=== PATIENT | female | born 1940 | race Caucasian/White ===

== ENCOUNTER 2020-11-30 10:00 | Outpatient (CLI) | payer MEDICARE, BC ==
--- NOTE | 2020-11-30 11:13 | CT Report ---
PROCEDURE: HEAD WO INDICATIONS: COGNITIVE IMPAIREMENT TECHNIQUE: Noncontrast 4.5 mm thick angled axial sections acquired from the foramen magnum to the vertex. For r adiation dose reduction, the following was used: automated exposure control, adjustment of mA and/or kV according to patient size. COMPARISON: None. FINDINGS: Image quality: Excellent. CSF spaces: Basal cisterns are patent. No extra-axial fluid collections. Ventricles are normal in size and shape. Brain: No midline shift. No intracranial masses or hemorrhage. There is mild cerebral volume loss. Mild periventricular white matter chronic small vessel ischemic disease are present. Skull and face: Calvarium and visualized facial bones are intact, without suspicious lesions. Sinuses: Visualized sinuses and mastoids are clear. IMPRESSION: 1. No acute intracranial abnormality. 2. Mild cerebral volume loss and periventricular white matter microvascular ischemic changes. Reviewed by: Ollie Jaramillo MD on 11/30/2020 11:12 AM [facility] Approved by: Ollie Jaramillo MD on 11/30/2020 11:12 AM [facility] Station ID: [id number]
== END 2020-11-30 10:01 | disposition home or self-care (01) ==
LOC: DI 10:00
PROVIDERS: ATTEND Nurse Practitioner Family
DX: R41.89 Other symptoms and signs involving cognitive functions and awareness (principal)

== ENCOUNTER 2021-01-24 11:40 | Outpatient (CLI) | payer MEDICARE, BC ==
--- NOTE | 2021-01-24 16:14 | CONSULTATION NOTE ---
Palliative Care Consultation - Referral Referring Provider: AISHA Tripp Time of Visit: [id number] Referral setting: Home Referral Reason: Alzheimer's Dementia/Advanced Care Planning - Information Sources Records reviewed: Previous records reviewed History/Review of Systems obtained from: Family (Fuad HANDLEY), Caregiver (Eleni) Exam limitations: Clinical condition (Advanced Dementia) - History of Present Illness Brief History of Present Illness: This is a 80-year-old female who presents today for initial palliative care consultation due to advancement of Alzheimer's dementia and advance care planning with her significant other/CASS, Fuad present and private caregiver, Eleni within her home setting. The patient's bowels is the historian has the patient has advanced dementia and is not a good historian. The patient spouse reports that approximately 4 years ago the patient had a sudden event in [place] that appeared to be a CVA where she had significant and memory loss, behavioral issues such as screaming and the patient was "not quite herself." She had an 8-day stay in the hospital [facility] where there was no evidence of a CVA and eventually the patient came back to "normal." But the patient spouse reports that after that initial incident she continued to have slow decline in her ability to do things such as her organization became less and less as well as her ability to figure how to do things in the house. Then approximately 6 months ago the patient was having decreased ability to recognize how to do things such as using the bathroom, remembering her significant other, and demonstrating increased decline. The patient's spouse feels like there have been a series of events of potential CVAs but all her multiples imagings a courier the past several years have been negative for a CVA. The patient has been seen and evaluated by neurology, Dr. Dakota Rabago at [facility] with neuro consult in 2019 with a diagnosis of Alzheimer's dementia. It was advised to utilize sertraline, Aricept, Seroquel and Zyprexa as needed. They have been following up via phone and have not followed back up in person. The patient has increased fidgeting and hyper energy in the evenings around typical time for sundowning behaviors and was recently initiated on Depakote 250 mg which the is administering half a tablet in the late morning early afternoon which has been done for the last month unclear if this is been providing a benefit. She has had persistent dizziness after syncopal episodes that have occurred intermittently that will last for a day or so and then resolve. She has had this evaluated with no reported findings per the . Her last episode was approximately 2 months ago. The patient has had a decreased appetite and will nibble at foods. She is unable to sit at the dining room table to have a full on meal and does better with finger foods. No reports of coughing during mealtimes. Patient has good days and bad days. Typically the mornings are better for the patient in approximately 2:58 in the afternoon she has more energy and has increased fidgeting behaviors. She does have urinary incontinence with no evidence of increased urinary frequency or dysuria. She is mainly continent of bowel. No evidence of constipation and typically has a bowel movement once per day. The patient is seen in the common area with a cap on her head and her hair not brushed. She is alert and not engaged and less directly addressed. No evidence of acute distress. Neurology: Dr. 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 Support System: The patient grew up in [place]. She has no children's. She and her significant other, Fuad have been together 25 to 30 years. 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 The patient also served with the [employer]. She is written multiple bulks. She has climbed [employer]. She and her spouse have a second home in [place] where they spend much of the last year due to Covid for increased isolation and protection. They also built the home that they live on [address]. The patient has a private caregiver, Eleni who is been with the patient for approximately 2 months through [facility] based out of [place]. Eleni is a former respiratory therapist. Otherwise, the patient's spouse is her primary caregiver and Eleni is present 5 to 6 hours/day 6 days/week. Family History - Family History Family History: Mother: , Father: Family History Comment/Other: The patient's sister remains alive in [place] but they are estranged. Both of the patient's parents had dementia and are both . The patient took care of her parents for some time until they transitioned to caregiving support at home and were able to at home. Medications/Allergies - Medications Home Medications: Ambulatory Orders Medication Instructions Recorded Confirmed Divalproex ER [Depakote ER] 125 mg PO DAILY 01/24/21 01/24/21 Donepezil HCl [Aricept] 20 mg PO QPM 01/24/21 01/24/21 Levothyroxine Sodium [Synthroid] 75 mcg PO DAILY 01/24/21 01/24/21 Melatonin 3 mg PO QPM 01/24/21 01/24/21 OLANZapine [Zyprexa] 2.5 mg PO DAILY PRN 01/24/21 01/24/21 QUEtiapine [SEROquel] 25 mg PO QPM 01/24/21 01/24/21 Sertraline [Zoloft] 25 mg PO DAILY 01/24/21 01/24/21 - Allergies Allergies/Adverse Reactions: Allergies Allergy/AdvReac Type Severity Reaction Status Date / Time No Known Allergies Allergy Unknown Verified 01/24/21 17:01 Review of Systems - Constitutional Constitutional: denies: Fever - Eyes Eyes: reports: Vision loss - Ears, Nose & Throat Ears, Nose & Throat: reports: Hearing loss. denies: Hearing aids - Cardiovascular Cardiovascular: denies: Chest pain, Edema - Respiratory Respiratory: denies: Cough - Gastrointestinal Gastrointestinal: reports: Poor appetite (see HPI). denies: Constipation, Diarrhea, Vomiting - Genitourinary Genitourinary: reports: Incontinence. denies: Dysuria - Musculoskeletal Musculoskeletal: denies: Joint pain, Assistive devices - Integumentary Integumentary: denies: Rash - Neurological Neurological: reports: Dizziness (see HPI for additional details), Memory problems - Psychiatric Psychiatric: reports: Depression - Endocrine Endocrine: reports: Hypothyroidism (spouse sometimes forgets to administer synthroid in the morning) - All Other Systems All Other Systems: reports: Reviewed and negative (patient is a poor historian due to dementia and ROS supplemented by caregiver and SO) Physical Exam - Vital Signs Pulse Rate: 72 O2 Saturation: 98 (on RA) Blood Pressure: 128/66 (left arm standing) - Physical Exam General Appearance: positive: No acute distress, Alert Eyes Bilateral: positive: Normal inspection ENT: positive: No signs of dehydration, Other (+[place]) Neck: positive: Trachea midline Cardiovascular: positive: Regular rate & rhythm, No murmur Respiratory: positive: No respiratory distress, Breath sounds nml. negative: Rales Abdomen: positive: Non-tender, Soft, Nml bowel sounds Skin: positive: Dryness (slight to BLE) Extremities: positive: No pedal edema Neurologic/Psychiatric: positive: Disoriented to place, Disoriented to time, Other (Pleasantly confused and could not follow simple comands. Does not ambulate with an assistive device.) Comments/Other: 132/68, left arm standing Palliative Care - POLST Patient has POLST: No Pain: No pain Tiredness/Fatigue: None Drowsiness/Sedation: None Nausea: None Anorexia: Moderate (4-6) Dyspnea: Mild (1-3) Anxiety: Severe (7-10) Sleep: Sleeps well (sleeps in a seperate hut on the facility next to her SO's hut where she is visualized. There is also a camera in the hut and a portable toliet.) Constipation: No Performance Status: Patient is ambulatory without assistive devices with no history of falls. She has not wandered off the property. She requires assistance with IADLs. She has an aversion to bathing. She has urinary incontinence and is mostly continent of bowel. Able to self feed but finds finger foods easier. - Palliative Care Discussion: The patient has had a significant decline in her cognitive status over the last 4 years with increased fidgeting and perseverating behaviors in the early evening hours indicative of sundowning behavior. The patient's significant other has been trying to do the best that he can in the present circumstances and has found great relief with the support of private caregiver, Eleni coming 6 days/week. He feels in the evening is the time that he is finally able to rest. The patient's spouse does feel given the acuity of her memory loss and events surrounding it is more indicative of vascular dementia however, per documenta tion from PCP per the neurologist she has underlying Alzheimer's dementia and has a family history of dementia. The patient spouse is looking for additional guidance and introduced the role of palliative care today as well as advanced care planning. Introduced the POLST and provided a copy for the patient's spouse to review and we readdressed at subsequent visits as well as billing report and teasing out goals of care. Impression and Recommendations - Palliative Care Impression: This is a 80-year-old female with a history of Alzheimer's dementia that has demonstrated progressive cognitive decline with underlying sundowning behaviors indicative of fidgeting that are presently overall controlled with the present regimen. The patient's spouse demonstrates some caregiver fatigue that is being assisted with the use of a private caregiver. Introduced advanced care planning to all parties. Palliative care will continue to provide support, care coordination, symptom management and anticipatory guidance. Recommendations/Counseling Done: 1. Decreased oral intake. No reported weight loss. As the patient has deficits with utilizing utensils would recommend continued use of finger foods for the patient to snack throughout the day to maintain calories. 2. Alzheimer's dementia. Has been followed by neurology and will request initial consultation and last office visit from Dr. Dakota Rabago. Patient is presently on Aricept 20 mg daily. For her increased fidgeting and behavioral disturbances indicative of sundowning in the evenings she is on routine quetiapine, Depakote, and sertraline. She has as needed Zyprexa 2.5 mg to be administered daily if needed. Fall precautions. Given the patient's advanced age and chronic comorbidities a gradual decline is expected. 3. Syncopal episodes. And this is a reported history with none recently. Multiple images have been performed without evidence of CVA. Last head CT performed 11/30/2020 "demonstrated no acute intracranial abnormality. Mild cerebral volume loss and periventricular white matter microvascular ischemic changes." No evidence of hypotension today. Encourage routine oral hydration throughout the day if this was a contributing factor. 4. Hypothyroidism. Discussed importance of routine administration of synthroid w ith SO and continued administration. 5. Advanced care planning. Patient has a healthcare power of real estate attorney documentation in place and requested the patient significant other to have available at next visit for copies to be made. Introduced POLST today with the purpose and provided blank copy to review at subsequent visits. As the patient and her significant other are without local family support will continue to need to tease out any additional relief for caregiving burden. Presently supported by private caregiving service that comes 6 days/week. We will continue to tease out goals of care moving forward. Total time spent 80 minutes with greater than 50% of this spent in counseling and coordination of care with patient, SO/DPOA Fuad and private caregiver Eleni; role of palliative care; progression of dementia;examination of patient; review of symptom management and anticipatory guidance. Disclaimer: The chart note was formulated using voice recognition technology and unfortunately sound alike errors may occur.
== END 2021-01-24 11:41 | disposition home or self-care (01) ==
LOC: PC 11:40
PROVIDERS: ATTEND Nurse Practitioner Family
DX: Z51.5 Encounter for palliative care (principal); R63.8 Other symptoms and signs concerning food and fluid intake; G30.9 Alzheimer's disease, unspecified; F02.80 Dementia in other diseases classified elsewhere, unspecified severity, without behavioral disturbance, psychotic disturbance, mood disturbance, and anxiety; E03.9 Hypothyroidism, unspecified
CPT/HCPCS: 99345

== ENCOUNTER 2021-02-08 11:30 | Outpatient (CLI) | payer MEDICARE, BC ==
--- NOTE | 2021-02-08 16:47 | CONSULTATION NOTE ---
Palliative Care Follow Up - Referral Referring Provider: AISHA Tripp Time of Visit: [id number] Referral setting: Home Referral Reason: Alzheimer's Dementia/Advanced Care Planning/Left shoulder injury - Information Sources Records reviewed: Previous records reviewed History/Review of Systems obtained from: Patient, Family (spouse, Fuad), Caregiver (Eleni) Exam limitations: Clinical condition (Advanced Dementia) - History of Present Illness Update Brief HPI Update: This is a 80-year-old female who is seen in follow-up today due to Alzheimer's dementia, left shoulder injury, and advanced care planning with her spouse/DPMARIA GUADALUPE Merida present as well as private caregiver, Eleni within her home setting. The patient's cognitive decline appeared to progress rapidly in 2017 while they were in vacation in [place]. The patient was in the hospital where she was disoriented and confused. She gradually improved and returned to her baseline without any intervention. Work-up included MRI, MRA, echo, EEG and CSF studies were essentially benign. The EEG at that time did show background slowing. She has been seen and evaluated by neurology, Dr. Dakota Rabago at [facility]. Followed up by phone but not for an in person visit for some time. The patient has been on Depakote per the spouse's report for approximately 2 months. During that time patient spouse reports that the patient has had intermittent difficulties with ambulating where she will lean towards one side. This most recent event occurred ~where the patient's spouse drove her to the emergency department to be evaluated however, by the time they presented to the emergency department she was back to her baseline and no longer leaning and therefore was not seen and evaluated. The patient's spouse questions if the Depakote may be contributing to her imbalance. As the spouse his concerned the depakote may be contributing to her imbalance he has reduced the administration and yesterday she did not receive a dose. There have been no falls that have been observed. However, on Thursday, the patient's spouse and caregiver noted bruising and swelling to the patient's left clavicle and shoulder. Any events that could have occurred would have happened overnight when the patient was in her sleeping quarters. She does not often allow for her close to be routinely changed and therefore, this was not noticed. There has been no evidence of increased agitation however, she does display signs and symptoms of discomfort when raising her left arm up. They have not provided any oral [id number] medication for pain. The patient does have a history of behavioral disturbances with agitation and anxiety. However, this appears to be intermittent and will not last very long as the symptoms leeann for the patient is able to be redirected. Spouse reports that he has not needed to utilize the as needed Zyprexa in several weeks. The patient is having a decreased oral intake at dinnertime. Her caregiver at home however also notes that the patient is sleeping longer during the day. Past Medical History: Has a past medical history of Alzheimer's dementia, Hypothyroidism, depression, cataract extraction, LASIK OU, macular drusen OS. Social History - Living Situation Living arrangement: At home Living Situation: With spouse/s.o. Support System: Patient grew up in [place]. She has no children. She and her Fuad have been together for 25 to 30 years. 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 She also served with the [employer] of [employer] [facility]. She is written multiple books. She even has climbed [employer]. The patient and her spouse felt the home that they were residing in on [address]. They have a secondary home and property in [place]. The patient has a private caregiver, Eleni who has been with the patient for approximately 2 months through [facility] based out of [place]. Eleni is present 5 to 6 hours/day 6 days/week and otherwise the patient's spouse is her sole and primary caregiver. Today, a picture of the patient's climbing [employer] was shared. Medications/Allergies - Medications Home Medications: Ambulatory Orders Medication Instructions Recorded Confirmed Divalproex ER [Depakote ER] 125 mg PO DAILY 01/24/21 01/24/21 Donepezil HCl [Aricept] 20 mg PO QPM 01/24/21 01/24/21 Levothyroxine Sodium [Synthroid] 75 mcg PO DAILY 01/24/21 01/24/21 Melatonin 3 mg PO QPM 01/24/21 01/24/21 OLANZapine [Zyprexa] 2.5 mg PO DAILY PRN 01/24/21 01/24/21 QUEtiapine [SEROquel] 25 mg PO QPM 01/24/21 01/24/21 Sertraline [Zoloft] 25 mg PO DAILY 01/24/21 01/24/21 Acetaminophen 500mg/15ml 500 mg PO Q8HR PRN 02/08/21 - Allergies Allergies/Adverse Reactions: Allergies Allergy/AdvReac Type Severity Reaction Status Date / Time No Known Allergies Allergy Unknown Verified 02/08/21 17:39 Review of Systems - Constitutional Constitutional: reports: Fatigue (sleeping later in the mornings). denies: Fever - Eyes Eyes: reports: Vision loss (left eye per spouse and last eye exam 2017 indicates macular drusen to that affected eye) - Ears, Nose & Throat Ears, Nose & Throat: reports: Hearing loss. denies: Hearing aids, Dentures - Cardiovascular Cardiovascular: denies: Edema - Respiratory Respiratory: denies: Cough - Gastrointestinal Gastrointestinal: reports: Poor appetite (decreased consumption of dinner). denies: Constipation, Vomiting - Genitourinary Genitourinary: reports: Incontinence. denies: Dysuria - Musculoskeletal Musculoskeletal: reports: Stiffness (left shoulder), Limited range of motion (left shoulder) - Neurological Neurological: reports: Dizziness (see HPI for additional details), Memory problems - Psychiatric Psychiatric: reports: Depression - Endocrine Endocrine: reports: Hypothyroidism - Hematologic/Lymphatic Hematologic/Lymph: reports: Bruising (left shoulder) - All Other Systems All Other Systems: reports: Reviewed and negative (patient is a poor historian due to dementia and ROS supplemented by caregiver and spouse) Physical Exam - Vital Signs Temperature: 36.5 C Pulse Rate: 61 O2 Saturation: 94 (on RA) Blood Pressure: 147/68 (right wrist) - Physical Exam General Appearance: positive: No acute distress, Alert Eyes Bilateral: positive: PERRL, Other (resolving trace ecchymosis below left eye appx 0.5cm in length and thin) ENT: positive: No signs of dehydration, Other (+[place]) Neck: positive: Trachea midline Cardiovascular: positive: Regular rate & rhythm, No murmur Respiratory: positive: No respiratory distress, Breath sounds nml Abdomen: positive: Non-tender, Soft, Nml bowel sounds Skin: positive: Dryness (slight to BLE), Bruising (along left clavicle to left shoulder down chest wall with edema) Extremities: positive: Other (decreased range of motion left shoulder with abducting above 90 degrees with passive ROM) Neurologic/Psychiatric: positive: Disoriented to place, Disoriented to time, Other (Pleasantly confused and could not follow simple comands. Does not ambulate with an assistive device.) Palliative Care - POLST Patient has POLST: No Pain: Comment (discomfort noted when assessing left shoulder as she did not want the shoulder evaluated or touched) Anorexia: Mild (1-3) - Palliative Care Discussion: The patient continues to have a functional and cognitive decline that has been progressive for for the last 4 years due to her underlying Alzheimer's dementia. She intermittently has episodes of agitation and anxiety that do not require the administration of as needed Zyprexa. The patient spouse has concerns regarding the use of Depakote potentially contributing to the patient's balance. After lengthy discussion weighing benefits versus burdens of medication man agement the patient's spouse wishes to do a trial reduction and discontinuation of Depakote. He is concerned that the patient is being medicated for his and the caregivers benefit versus the patient herself. Supportive listening provided today for the patient's spouse and reviewed evidence of anxiety and agitation in patients with dementia baby indicative of discomfort and therefore would be treating those layers of discomfort. Clearly, the patient is sustained an injury to her left shoulder that was unwitnessed. Given her inability to participate with with articulating the mechanism of injury and following commands it is difficult to assess if there is an underlying fracture. Discussed potential past with the patient's spouse focusing on comfort within the home and monitoring recognizing that the patient may have limited range of motion in the future versus evaluation in an urgent care setting with imaging over the emergency department for decreased ambulation. The patient's spouse is open to having an urgent care evaluation with imaging to rule out a fracture. Introduced POLST again today with the patient's spouse and caregiver. However, the patient spells is reluctant to make any decisions at the present time despite having looked over the POLST and stating that the patient herself wouldn't not wish to be "hooked up to life support." Making these bigger decisions are challenging for the patient's spouse and he wishes to review the patient's living will before making any decisions with the POLST. Impression and Recommendations - Palliative Care Impression: This is a 72-year-old female with a history of Alzheimer's dementia that has demonstrated progressive, cognitive decline with sundowning behaviors that are presently well controlled however, with her recent imbalance issues the patient's spouse wishes to taper off Depakote and monitor behavioral symptoms. She recently sustained an unwitnessed injury to her left shoulder that the patient spouse wishes to have further evaluated with imaging to rule out a fracture. Palliative care will continue to provide support, care coordination, symptom management and anticipatory guidance. Recommendations/Counseling Done: 1. Left shoulder injury with decreased range of motion, ecchymosis and edema. RN witnessed injury. Due to the patient's underlying Alzheimer's dementia unable to fully assess. Weighed benefits versus burdens regarding evaluation versus symptom management within the home with spouse. The patient spouse wishes to have further evaluation with imaging and elects to present with the patient to the [place] walk-in clinic which would be less stimulating than an emergency department setting. Advised to ice the area up to 3 times a day until evaluated to reduce swelling. May utilize acetaminophen 500 mg per 15 mL to administer 500 mg every 8 hours as needed for pain with liquid allowing for ease of administration. F/u with walk in clinic/urgent care. 2. Imbalance. Not noted on today's evaluation or last evaluation. Patient spouse is concerned that Depakote is contributing. Administer Depakote 125 mg 1 capsule every other day x7 days then discontinue. Recommend the patient spouse and caregiver monitor for signs and symptoms of increased agitation. Reviewed the purpose of Depakote as a mood stabilizer for the patient's underlying behaviors. Continue to monitor and provide support to the patient and spouse. 3.Decreased oral intake. No reported weight loss. Continue finger foods as the patient has difficulty utilizing utensils. As the patient is having a decreased oral intake surrounding dinnertime recommended the use of a milkshake with pea protein powder for additional protein supplementation. Continue to monitor. Gradual decreased oral intake is not unexpected given advancement of dementia. 4.Alzheimer's dementia. Followed by neurologist, Dr. Dakota Rabago. Patient is presently on Aricept 20 mg daily. She is also on routine quetiapine as well as sertraline. Will gradually discontinue Depakote and monitor agitation and anxiety behaviors. She has as needed Zyprexa 2.5 mg to be administered daily if needed for acute exacerbation of agitation and anxiety. Fall precautions. Recommended baby gate to be installed at foot of stairs in main quarters to prevent the patient for potentially going up the stairs and falling if unattended. Given the patient's advanced age and chronic comorbidities a gradual decline is expected. 5.Advanced Care Planning. Spouse to obtain the healthcare power of contracts attorney documentation and living will for next visit. We re-introduced POLST today however, the patient's spouse takes time regarding reflecting on decisions before moving forward and requires additional referencing to the patient's living will. Empathetic listening provided to the patient's spouse as he is demonstrating signs of caregiver fatigue. Total time spent 50 minutes with greater than 50% of the spent in counseling and coordination of care with the patient, spouse/CASS Fuad and private caregiver, Eleni; examination of the patient; supportive listening; review of safety measures within the home for the patient; review of symptom management and anticipatory guidance. Disclaimer: The chart note was formulated using voice recognition technology and unfortunately sound alike errors may occur.
== END 2021-02-08 11:31 | disposition home or self-care (01) ==
LOC: PC 11:30
PROVIDERS: ATTEND Nurse Practitioner Family
DX: Z51.5 Encounter for palliative care (principal); G30.9 Alzheimer's disease, unspecified; F02.81 Dementia in other diseases classified elsewhere, unspecified severity, with behavioral disturbance; F32.9 Major depressive disorder, single episode, unspecified; H35.362 Drusen (degenerative) of macula, left eye; H91.90 Unspecified hearing loss, unspecified ear; R32 Unspecified urinary incontinence; S49.92XA Unspecified injury of left shoulder and upper arm, initial encounter; X58.XXXA Exposure to other specified factors, initial encounter; Y92.009 Unspecified place in unspecified non-institutional (private) residence as the place of occurrence of the external cause; E03.9 Hypothyroidism, unspecified; R26.2 Difficulty in walking, not elsewhere classified; Z91.81 History of falling; Z79.899 Other long term (current) drug therapy
CPT/HCPCS: 99349

== ENCOUNTER 2021-03-10 08:30 | Outpatient (CLI) | payer MEDICARE, BC | END 2021-03-10 08:31 | disposition critical access hospital (66) | LOC: EMS 08:30 | DX: R40.4 Transient alteration of awareness (principal) | CPT/HCPCS: A0425; A0429 ==

== ENCOUNTER 2021-03-10 08:52 | Emergency (ER) | payer MEDICARE, BC ==
--- NOTE | 2021-03-10 09:04 | ED Physician Documentation ---
History of Present Illness - Stated complaint Stated Complaint: ALOC - History obtained from History obtained from: EMS - Additonal information Additional information: 81-year-old woman presented with altered mental status upon waking this morning per EMS. called the ambulance because she was behaving at her baseline yesterday and then this morning did not get out of bed. Also with palsy-like movements yesterday per spouse. She has dementia at baseline and per old reports, is had severe progressively deteriorating Alzheimer's over the past several years. She is on Depakote and quetiapine for this. further history limited by patient AMS. She is eye opening intermittently but not on command, stating "leave me alone". no apparent neuro deficits. Collateral information obtained from the when he arrivedpatient has exhibited catatonic behavior for the past 24 hours that is progressively worsened. She has had this happen in the past but never this bad. Also he is concerned that she has been eating and drinking less over the past couple months. Of note, patient takes sertraline in the morning, Depakote 125 around midday prn (but did not take yesterday), and quetiapine/donepezil at bedtime. Neurologist Dr Rabago at [facility]. Review of Systems Unable to obtain: Dementia PD PAST MEDICAL HISTORY - Past Medical History Neuro: Alzhiemer's Endocrine/Autoimmune: HyPOthyroidism : Incontinence HEENT: Chronic vision loss (left eye per spouse), Chronic hearing loss Psych: Depression Musculoskeletal: Osteoporosis - Past Surgical History HEENT: Cataracts - Present Medications Home Medications: Ambulatory Orders Medication Instructions Recorded Confirmed Divalproex ER [Depakote ER] 125 mg PO DAILY 01/24/21 03/10/21 Donepezil HCl [Aricept] 20 mg PO QPM 01/24/21 03/10/21 Levothyroxine Sodium [Synthroid] 75 mcg PO DAILY 01/24/21 03/10/21 Melatonin 3 mg PO QPM 01/24/21 03/10/21 OLANZapine [Zyprexa] 2.5 mg PO DAILY PRN 01/24/21 03/10/21 QUEtiapine [SEROquel] 25 mg PO QPM 01/24/21 03/10/21 Sertraline [Zoloft] 25 mg PO DAILY 01/24/21 03/10/21 Acetaminophen 500mg/15ml 500 mg PO Q8HR PRN 02/08/21 03/10/21 - Allergies Allergies/Adverse Reactions: Allergies Allergy/AdvReac Type Severity Reaction Status Date / Time No Known Allergies Allergy Unknown Verified 03/10/21 09:07 - POLST Patient has POLST: No PD ED PE NORMAL - Vitals Vital signs reviewed: Yes - General General: Other (elderly appearing woman with fine resting tremor) - HEENT HEENT: Atraumatic, PERRL, EOMI, Moist mucous membranes, Pharynx benign - Neck Neck: Supple, no meningeal sign - Cardiac Cardiac: RRR - Respiratory Respiratory: No respiratory distress, Clear bilaterally - Abdomen Abdomen: Non tender, Non distended - Back Back: No spinal TTP - Derm Derm: Normal color, Warm and dry - Extremities Extremities: No deformity - Neuro Neuro: Other (eye opening spontaneously but not on command. moving extremities spontaneously but not on command. speaking in short sentence "Leave me alone!") - Psych Psych: Other (catatonic behavior) Results - Vitals Vitals: Vital Signs - 24 hr 03/10/21 03/10/21 03/10/21 08:59 09:19 09:42 Temperature 36.7 C Heart Rate 80 69 70 Respiratory 18 14 14 Rate Blood Pressure 125/100 H 125/100 H 116/93 H O2 Saturation 96 96 98 03/10/21 03/10/21 03/10/21 10:06 10:30 11:59 Temperature 36.8 C Heart Rate 62 63 66 Respiratory 17 17 18 Rate Blood Pressure 115/103 H 140/62 H 125/100 H O2 Saturation 99 97 99 03/10/21 12:39 Temperature Heart Rate 90 Respiratory 22 Rate Blood Pressure 97/69 O2 Saturation 99 Oxygen O2 Source Room air - EKG (time done) 0901 Rate: Rate (enter#) (66) Rhythm: NSR, Other (PVC, RBBB) - Labs Labs: Laboratory Tests 03/10/21 03/10/21 03/10/21 09:10 09:46 09:46 WBC 9.9 RBC 4.53 Hgb 14.8 Hct 44.7 MCV 98.7 MCH 32.7 H MCHC 33.1 RDW 12.4 Plt Count 124 L MPV 10.7 Neut # (Auto) 8.0 H Lymph # (Auto) 0.5 L [place] # (Auto) 1.1 H Eos # (Auto) 0.2 Baso # (Auto) 0.0 Absolute Nucleated RBC 0.00 Nucleated RBC % 0.0 Manual Slide Review Indicated RBC Morph Micro Appear 1+ ANISOCYTOSIS Sodium 138 Potassium 4.2 Chloride 101 Carbon Dioxide 24 Anion Gap 13.0 BUN 25 H Creatinine 0.8 Estimated GFR (MDRD) 69 L Glucose 125 H Calcium 9.6 Total Bilirubin 1.1 H AST 128 H ALT 51 Alkaline Phosphatase 60 Total Protein 7.4 Albumin 4.0 Globulin 3.4 Albumin/Globulin Ratio 1.2 Lipase 30 TSH Urine Color Urine Clarity Urine pH Ur Specific [place] Urine Protein Urine Glucose (UA) Urine Ketones Urine Occult Blood Urine Nitrite Urine Bilirubin Urine Urobilinogen Ur Leukocyte Esterase Urine RBC Urine WBC Ur Squamous Epith Cells Urine Bacteria Urine Mucus Ur Microscopic Review Urine Culture Comments Nasal Adenovirus (PCR) NOT DETECTED Nasal B. parapertussis DNA (PCR) NOT DETECTED Nasal Coronavir 229E PCR NOT DETECTED Nasal Coronavir HKU1 PCR NOT DETECTED Nasal Coronavir NL63 PCR NOT DETECTED Nasal Coronavir OC43 PCR NOT DETECTED Nasal Enterovir/Rhinovir PCR NOT DETECTED Nasal Influenza B PCR NOT DETECTED Nasal Influenza A PCR NOT DETECTED Nasal Parainfluen 1 PCR NOT DETECTED Nasal Parainfluen 2 PCR NOT DETECTED Nasal Parainfluen 3 PCR NOT DETECTED Nasal Parainfluen 4 PCR NOT DETECTED Nasal RSV (PCR) NOT DETECTED Nasal B.pertussis DNA PCR NOT DETECTED Nasal C.pneumoniae (PCR) NOT DETECTED Serafin Human Metapneumo PCR NOT DETECTED Nasal M.pneumoniae (PCR) NOT DETECTED Nasal SARS-CoV-2 (PCR) NOT DETECTED Salicylates < 6.0 Urine Opiates Screen Ur Oxycodone Screen Urine Methadone Screen Ur Propoxyphene Screen Acetaminophen < 10 L Ur Barbiturates Screen Ur Tricyclics Screen Ur Phencyclidine Scrn Ur Amphetamine Screen U Methamphetamines Scrn U Benzodiazepines Scrn Urine Cocaine Screen U Cannabinoids Screen Ethyl Alcohol < 5.0 03/10/21 03/10/21 09:46 10:03 WBC RBC Hgb Hct MCV MCH MCHC RDW Plt Count MPV Neut # (Auto) Lymph # (Auto) [place] # (Auto) Eos # (Auto) Baso # (Auto) Absolute Nucleated RBC Nucleated RBC % Manual Slide Review RBC Morph Micro Appear Sodium Potassium Chloride Carbon Dioxide Anion Gap BUN Creatinine Estimated GFR (MDRD) Glucose Calcium Total Bilirubin AST ALT Alkaline Phosphatase Total Protein Albumin Globulin Albumin/Globulin Ratio Lipase TSH 7.05 H Urine Color DARK YELLOW Urine Clarity CLEAR Urine pH 6.0 Ur Specific [place] >=1.030 H Urine Protein 30 H Urine Glucose (UA) NEGATIVE Urine Ketones 15 H Urine Occult Blood LARGE H Urine Nitrite NEGATIVE Urine Bilirubin NEGATIVE Urine Urobilinogen 0.2 (NORMAL) Ur Leukocyte Esterase NEGATIVE Urine RBC 0-5 Urine WBC 0-3 Ur Squamous Epith Cells RARE Squamous Urine Bacteria Few Urine Mucus Few Strands Ur Microscopic Review INDICATED Urine Culture Comments NOT INDICATED Nasal Adenovirus (PCR) Nasal B. parapertussis DNA (PCR) Nasal Coronavir 229E PCR Nasal Coronavir HKU1 PCR Nasal Coronavir NL63 PCR Nasal Coronavir OC43 PCR Nasal Enterovir/Rhinovir PCR Nasal Influenza B PCR Nasal Influenza A PCR Nasal Parainfluen 1 PCR Nasal Parainfluen 2 PCR Nasal Parainfluen 3 PCR Nasal Parainfluen 4 PCR Nasal RSV (PCR) Nasal B.pertussis DNA PCR Nasal C.pneumoniae (PCR) Serafin Human Metapneumo PCR Nasal M.pneumoniae (PCR) Nasal SARS-CoV-2 (PCR) Salicylates Urine Opiates Screen NEGATIVE Ur Oxycodone Screen NEGATIVE Urine Methadone Screen NEGATIVE Ur Propoxyphene Screen NEGATIVE Acetaminophen Ur Barbiturates Screen NEGATIVE Ur Tricyclics Screen POSITIVE H Ur Phencyclidine Scrn NEGATIVE Ur Amphetamine Screen NEGATIVE U Methamphetamines Scrn NEGATIVE U Benzodiazepines Scrn NEGATIVE Urine Cocaine Screen NEGATIVE U Cannabinoids Screen NEGATIVE Ethyl Alcohol PD MEDICAL DECISION MAKING - ED course ED course: 81-year-old woman presented with altered mental status over the past 36 hours. Her Has been interviewed multiple times. Initially he said that she was completely normal and then woke up this way, then after more discussion he said that this has been ongoing for 24 hours. Upon my most recent visit the room he said that it has been 24 to 36 hours that she has been less active. Patient is eye-opening spontaneously and mumbling while I am in the room. Low suspicion for myxedema coma at this time since patient is normothermic, normal sodium, normal vitals. She did speak to me once but is very limited. is considering NH placement. SW to see. 1:30 PMBilly our social work case manager was working on placement for Ms. Lyon. Her requested to speak with me and says that the patient has perked up quite a bit during her stay here and is now speaking in short sentences. He is requesting that they go home. With the assistant farm operations manager of [employer], our tech I ambulated her and she actually open her eyes and started talking.We are recommending that he follow-up with their primary doctor for jail placement. Consider [facility]. Their caregiver will be able to assist for now. Departure - Departure Disposition: Home, Self Care Clinical Impression: Alzheimer's dementia, Catatonia Condition: Good Instructions: ED Dementia Caregiver Support Comments: Your was seen in the emergency department for evaluation after becoming acutely unresponsive. I am glad that she is feeling better! You can consider [facility] for placement and coordinate through your primary doctor. Please return to the emergency department if she has any new or worsening symptoms or if you have other concerns.
[2021-03-10 10:06] LABS: BASOPHILS % (AUTO) 0.2 %; EOSINOPHILS # (AUTO) 0.2 10^3/uL (0.0-0.7); HCT - HEMATOCRIT 44.7 % (37.0-47.0); HGB - HEMOGLOBIN 14.8 g/dL (12.0-16.0); LYMPHOCYTES # (AUTO) 0.5 10^3/uL (1.5-3.5); LYMPHOCYTES % (AUTO) 4.8 %; MEAN CORPUSCULAR HEMOGLOBIN 32.7 pg (27.0-31.0); MEAN CORPUSCULAR HGB CONC 33.1 g/dL (32.0-36.0); MEAN CORPUSCULAR VOLUME 98.7 fL (81.0-99.0); MEAN PLATELET VOLUME 10.7 fL (7.9-10.8); MONOCYTES # (AUTO) 1.1 10^3/uL (0.0-1.0); MONOCYTES % (AUTO) 11.5 %; NEUTROPHILS % (AUTO) 81.2 %; PLT - PLATELET COUNT 124 10^3/uL (130-450); RED BLOOD COUNT 4.53 10^6/uL (4.20-5.40); RED CELL DISTRIBUTION WIDTH 12.4 % (12.0-15.0); WHITE BLOOD COUNT 9.9 x10^3/uL (4.8-10.8)
[2021-03-10 10:07] LABS: SLIDE REVIEW? Indicated
[2021-03-10 10:09] LABS: MUDS CUTOFF CONCENTRATIONS CUTOFF CONC BELOW:
[2021-03-10 10:13] LABS: GLUCOSE, URINE (UA) NEGATIVE (NEGATIVE); KETONES,URINE (UA) 15 mg/dL (NEGATIVE); LEUKOCYTE ESTERASE, URINE NEGATIVE (NEGATIVE); NITRITE,URINE NEGATIVE (NEGATIVE); OCCULT BLOOD,URINE LARGE (NEGATIVE); PROTEIN,URINE 30 mg/dL (NEGATIVE); UROBILINOGEN,URINE 0.2 (NORMAL) E.U./dL (NORMAL)
[2021-03-10 10:26] LABS: RBC MORPHOLOGY (MULTIPLE) 1+ ANISOCYTOSIS (NORMAL)
--- NOTE | 2021-03-10 10:26 | CT Report ---
PROCEDURE: HEAD WO INDICATIONS: AMS, weak TECHNIQUE: Noncontrast 4.5 mm thick angled axial sections acquired from the foramen magnum to the vertex. For r adiation dose reduction, the following was used: automated exposure control, adjustment of mA and/or kV according to patient size. COMPARISON: 11/30/2020. FINDINGS: Image quality: Excellent. CSF spaces: Basal cisterns are patent. No extra-axial fluid collections. Ventricles are normal in size and shape. Brain: No midline shift. No intracranial masses or hemorrhage. Rao-white matter interface is norm al. Age-related volume loss and small vessel ischemic change. Intracranial carotid artery calcificat ions bilaterally. Skull and face: Calvarium and visualized facial bones are intact, without suspicious lesions. Sinuses: Mucous retention cyst, left maxillary sinus. IMPRESSION: 1. Age-related volume loss and small vessel ischemic change. 2. No evidence of acute stroke, hemorrhage, or mass. Reviewed by: Jese Curtis MD on 03/10/2021 9:25 AM CASSIUS Approved by: Jese Curtis MD on 03/10/2021 9:25 AM AKALLYSON Station ID: [id number]
[2021-03-10 10:27] LABS: CLARITY,URINE CLEAR (CLEAR)
[2021-03-10 10:32] LABS: BILIRUBIN,URINE NEGATIVE (NEGATIVE); ICTOTEST,URINE NEGATIVE
[2021-03-10 10:33] LABS: AMPHETAMINE SCREEN,URINE NEGATIVE (NEGATIVE); BARBITURATE SCREEN,UR NEGATIVE (NEGATIVE); BENZODIAZEPINES SCREEN, URINE NEGATIVE (NEGATIVE); COCAINE SCREEN URINE NEGATIVE (NEGATIVE); METHADONE SCREEN, URINE NEGATIVE (NEGATIVE); METHAMPHETAMINES SCREEN, URINE NEGATIVE (NEGATIVE); OPIATE SCREEN, URINE NEGATIVE (NEGATIVE); OXYCODONE SCREEN, URINE NEGATIVE (NEGATIVE); PROPOXYPHENE SCREEN, URINE NEGATIVE (NEGATIVE); THC CANNABINOID SCREEN, URINE NEGATIVE (NEGATIVE); TRICYCLIC ANTIDEPRESSANT,URINE POSITIVE (NEGATIVE)
[2021-03-10 10:34] LABS: ACETAMINOPHEN < 10 ug/mL (10-30); ALBUMIN/GLOBULIN RATIO 1.2 (1.0-2.2); ALKALINE PHOSPHATASE 60 IU/L (42-121); ALT ALANINE AMINOTRANSFERASE 51 IU/L (10-60); AST ASPARTATE AMINOTRANSFERASE 128 IU/L (10-42); BILIRUBIN,TOTAL 1.1 mg/dL (0.2-1.0); BUN - BLOOD UREA NITROGEN 25 mg/dL (6-20); CALCIUM 9.6 mg/dL (8.5-10.3); CHLORIDE 101 mmol/L (101-111); CREATININE 0.8 mg/dL (0.4-1.0); ETOH - ETHANOL < 5.0 mg/dL; GFR - MDRD 69 (>89); GLUCOSE 125 mg/dL (70-100); LIPASE 30 U/L (22-51); POTASSIUM 4.2 mmol/L (3.5-5.0); SALICYLATE < 6.0 mg/dL; SODIUM 138 mmol/L (135-145); TOTAL PROTEIN 7.4 g/dL (6.7-8.2)
[2021-03-10 10:40] LABS: CARBON DIOXIDE - CO2 24 mmol/L (21-32)
[2021-03-10 10:45] LABS: BACTERIA,URINE Few /HPF (None Seen); MUCUS,URINE Few Strands; RBC,URINE 0-5 /HPF (0-5); SQUAMOUS EPITHELIAL CELL,UR RARE Squamous (<= Few); WBC,URINE 0-3 /HPF (0-5)
[2021-03-10 11:12] LABS: B. PARAPERTUSSIS- RESP PCR PAN NOT DETECTED; B. PERTUSSIS- RESP PCR PANEL NOT DETECTED; C. PNEUMONIAE- RESP PCR PANEL NOT DETECTED; CORONAVIRUS 229E-RESP PCR NOT DETECTED; CORONAVIRUS HKU1-RESP PCR NOT DETECTED; CORONAVIRUS NL63-RESP PCR NOT DETECTED; CORONAVIRUS OC43-RESP PCR NOT DETECTED; HUMAN METAPNEUMOVIRUS NOT DETECTED; INFLUENZA A- RESP PCR PANEL NOT DETECTED; INFLUENZA B - RESP PCR PANEL NOT DETECTED; M. PNEUMONIAE- RESP PCR PANEL NOT DETECTED; PARAINFLUENZA VIRUS 1 NOT DETECTED; PARAINFLUENZA VIRUS 2 NOT DETECTED; PARAINFLUENZA VIRUS 3 NOT DETECTED; PARAINFLUENZA VIRUS 4 NOT DETECTED; RHINOVIRUS/ENTEROVIRUS NOT DETECTED; RSV- RESP PCR PANEL NOT DETECTED; SARS-CoV-2 -RESP PCR PANEL NOT DETECTED
[2021-03-10] MEDS ORDERED: SODIUM CHLORIDE 0.9% 1,000 ML IV STA (11:12)
[2021-03-10] MEDS ORDERED: LEVOTHYROXINE 75 MCG TABLET PO STA (11:27)
[2021-03-10 14:12] VITALS: BP 137/75
== END 2021-03-10 14:30 | disposition home or self-care (01) ==
LOC: EDUNIT# → ED 08:52
DX: F06.1 Catatonic disorder due to known physiological condition (principal); G30.9 Alzheimer's disease, unspecified; F02.80 Dementia in other diseases classified elsewhere, unspecified severity, without behavioral disturbance, psychotic disturbance, mood disturbance, and anxiety; Z20.822 Contact with and (suspected) exposure to COVID-19; I45.10 Unspecified right bundle-branch block
CPT/HCPCS: 36415; 70450; 80053; 80306; 80307; 81001; 83690; 84443; 85025; 87631; 93005; 96360; 99281; 99284; A9270; G0480; 0202U; 80320; 80329; 81003; 87086

== ENCOUNTER 2021-03-19 14:00 | Outpatient (CLI) | payer MEDICARE, BC ==
--- NOTE | 2021-03-19 17:39 | CONSULTATION NOTE ---
Palliative Care Follow Up - Referral Referring Provider: Dr.Mark Driver Time of Visit: [id number] Referral setting: Home Referral Reason: Alzheimer's Dementia/FTT/Physical Deconditioning - Information Sources Records reviewed: Previous records reviewed History/Review of Systems obtained from: Family (spouse, Fuad), Caregiver (Eleni) Exam limitations: Clinical condition (Advanced Dementia) - History of Present Illness Update Brief HPI Update: This is a 81-year-old female who was seen in follow-up today in her home due to Alzheimer's dementia, failure to thrive, and physical deconditioning with her spouse/DPOA, Fuad present as well as her private caregiver, Eleni. The patient began developing cognitive decline that appeared to progress rapidly in 2016 while the patient and her spouse were vacationing in [place]. She had an extensive work-up during a hospital admission where she was disoriented and confused. There is never a definitive diagnosis outside of Alzheimer's dementia from a neurological standpoint. She is followed by neurology, Dr. Dakota Rabago at [facility]. The patient on 03/10 was demonstrating increased fatigue and sleeping throughout the day which was not her typical baseline. Prior to 03/10 the patient was become meeting more agitated with her behaviors where she would grab her caregiver during attempts of pericare or would block with her body advancement during ambulation. The patient spouse prior to presentation in the emergency department on 03/10 had placed the patient back on Depakote after a gradual taper approximately a week before and did not have a discussion with healthcare providers. The patient due to her altered mental status and refusing to eat and drink had lab work obtained as well as CT of the head which demonstrated "age- related volume loss and small vessel ischemic changes. No evidence of acute stroke, hemorrhage or mass. And stroke she does not have any evidence of a urinary tract infection. The patient spouse was hoping that she would be admitted for evaluation but instead, was discharged where she had to return back home. Upon return back home the patient had a transfer to her sleeping pod as she has been nonambulatory and for the first 6 days upon returning home overall with good to eat and drink and she was requiring assistance for this. She is no longer ambulatory on prior to this altered change in mental status she was ambulatory without an assistive device. Her caregiver notes that her left side has seemed weaker than her right side with her pinion staker. Now in the last 3 to 4 days she is becoming more active and alert. However, she still requires assistance with feeding and presently is typically consuming Ensure and ice cream as well as popsicles and water for hydration. The patient's spouse spoke to the patient's neurologist who had recommended discontinuing all of her neurologic and Alzheimer medications which she has done and has been off of for approximately 8 days. Therefore, this is unlikely to be a contributing factor and likely either a TIA that the patient experienced or further progression of her dementia. The patient is seen in a hospital bed awake and alert with no evidence of agitation or anxiety. She is in a hospital gown. Past Medical History: Patient has a past medical history of Alzheimer's dementia, hypothyroidism, dementia, cataract extraction, Lasix OU, macular drusen OS, osteoporosis. Social History - Living Situation Living arrangement: At home Living Situation: With spouse/s.o. Support System: Patient grew up in [place]. She has no children. She and her , Fuad have been together for 25 to 30 years. 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 She also served with the [employer] [facility]. She is written multiple [employer]. She has done [employer]. The patient and her spouse built the home that they were residing in on [address]. The patient has a private caregiver, Eleni who has been with the patient for approximately 2 months through health care agency [facility] based out of [place]. Eleni is present for 5 to 6 hours/day 6 days/week and otherwise the patient's spouse is her sole and primary caregiver. The patient spouse has recently obtained a hospital bed from [facility] which has been assisted as the patient is no longer ambulatory. The patient spouse is expressing the need for increased caregiving support. A referral to [employer] [facility] has been placed and [employer] [employer] [facility] contacted the patient's spouse today and he may qualify for some additional caregiving hours per month. Medications/Allergies - Medications Home Medications: Ambulatory Orders Medication Instructions Recorded Confirmed Levothyroxine Sodium [Synthroid] 75 mcg PO DAILY 01/24/21 03/10/21 Melatonin 3 mg PO QPM 01/24/21 03/10/21 QUEtiapine [SEROquel] 25 mg PO DAILY PRN 01/24/21 03/10/21 Acetaminophen 500mg/15ml 500 mg PO Q8HR PRN 02/08/21 03/10/21 Aspirin Chewable [St Ever 81 mg PO DAILY 03/19/21 03/19/21 Aspirin] - Allergies Allergies/Adverse Reactions: Allergies Allergy/AdvReac Type Severity Reaction Status Date / Time No Known Allergies Allergy Unknown Verified 03/10/21 09:07 Review of Systems - Constitutional Constitutional: reports: Fatigue (increased sedation but improving, see HPI), Poor appetite, Other (Left MAC today 22.5cm). denies: Fever - Eyes Eyes: reports: Vision loss (left eye per spouse and last eye exam 2017 indicates macular drusen to that affected eye) - Ears, Nose & Throat Ears, Nose & Throat: reports: Hearing loss. denies: Hearing aids, Dentures - Cardiovascular Cardiovascular: denies: Edema - Respiratory Respiratory: denies: Cough (during meals), Wheezing - Gastrointestinal Gastrointestinal: reports: Poor appetite, Other (Incontinent of stool). denies: Constipation (last bowel movement today), Vomiting - Genitourinary Genitourinary: reports: Incontinence - Musculoskeletal Musculoskeletal: reports: Stiffness (left shoulder), Transfer issues (has not ambulated in appx 2 weeks and is bedbound). denies: Joint pain - Integumentary Integumentary: reports: Other (skin breakdown to left buttock and left thigh due to friction and fragile skin) - Neurological Neurological: reports: General weakness, Memory problems - Psychiatric Psychiatric: reports: Depression, Behavior disturbances - Endocrine Endocrine: reports: Hypothyroidism - All Other Systems All Other Systems: reports: Reviewed and negative (patient is a poor historian due to dementia and ROS supplemented by caregiver and spouse) Physical Exam - Vital Signs Temperature: 36.6 C Pulse Rate: 90 O2 Saturation: 96 (on RA) Blood Pressure: 125/75 (left arm) - Physical Exam General Appearance: positive: No acute distress, Alert, Other (resting in bed) Eyes Bilateral: positive: PERRL ENT: positive: No signs of dehydration, Other (+[place]) Neck: positive: Trachea midline Cardiovascular: positive: Regular rate & rhythm Respiratory: positive: No respiratory distress, Breath sounds nml. negative: Rhonchi Abdomen: positive: Non-tender, Soft, Nml bowel sounds. negative: Distended Skin: positive: Other (excoriation to left upper thigh and left buttock without discharge or surrounding erythema, unable to measure as patient is resistant to being on her side despite assistance appx quarter size. After assisted with pericare s/p bowel movement melissa cream applied to areas of excoriation.) Extremities: positive: No pedal edema Neurologic/Psychiatric: positive: Disoriented to person, Disoriented to place, Disoriented to time, Weakness (Generalized with strong BUE strength when resistanting care), Unintelligible speech (+word salad with minimal speech), Other (Pleasantly confused and could not follow simple comands.) Palliative Care - POLST Patient has POLST: No Pain: No pain Anorexia: Moderate (4-6) Sleep: Sleeps well Constipation: No Performance Status: Patient has gone from being ambulatory without an assistive device to being bedbound. She requires assistance with all IADLs. She is incontinent of bowel and bladder. She is requiring assistance with meals. FAS T7 C - Palliative Care Discussion: Patient had previously demonstrated a functional and cognitive decline that had been progressive for the last 4 years due to her underlying Alzheimer's dementia and presented acutely approximately 9 days ago with acute altered mental status with out any medical findings that were reversible. Given the patient's prior history and acute status this may have been an underlying TIA versus progression of the patient's Alzheimer's dementia. The patient is now no longer ambulatory and is incontinent of bowel and bladder. However, she has had gradual improvement of her overall alertness and an oral intake. The patient's spouse does not want to "give up on her." The patient spouse wishes for the patient to get close to her former baseline status of being ambulatory and assisting with some self-care items despite reorienting and setting expectations regarding the progression of dementia. The patient's spouse is shouldering a significant amount of caregiver burden and now that the patient is bedbound she is a 2 person assist for care between both the patient spouse and caregiver. The patient spouse does not wish for her to be transferred to a facility and wishes to keep her at home for as long as possible. He continues to not wish to discuss advance care planning despite recognizing and vocalizing that the antipsychotics that the patient had previously been on for management of her behaviors he feels is more for his and the caregiver benefit versus the patient herself. He continues to struggle with the patient's advancing dementia. Given the patient's spouse's desire to have the patient have optimization and getting his a chance to get close to her former baseline status recognizing that dementia is a chronic, progressive disease he wishes to have home health physical therapy and Occupational Therapy for additional support. Impression and Recommendations - Palliative Care Impression: This is an 81-year-old female with a history of Alzheimer's dementia that previously had behavioral disturbances with sundowning behaviors now presenting as an FAS T7 C, physical deconditioning due to possible TIA versus advancement of Alzheimer's dementia, excoriation to skin requiring home health services and additional caregiving support. Patient spouse/DPOA remains reluctant to move forward with advanced care planning.Palliative care will continue to provide support, tease out goals of care, care coordination, symptom management and anticipatory guidance. Recommendations/Counseling Done: 1. Altered mental status. Patient was seen and evaluated at [facility] emergency department with no evidence of acute abnormality on CT imaging of the head and lab work without electrolyte disturbance or evidence of a urinary tract infection as the cause. Possible the patient had sustained a TIA. Given potential increased risk for stroke will initiate a 81 mg chewable aspirin for stroke prevention. Continue to monitor. 2. Physical deconditioning due to possible TIA with bedbound status. Patient has gone from ambulatory without assistive device to bedbound status in approximately 2 weeks. Patient would benefit from home health physical therapy and Occupational Therapy for caregiver education for fall and safety prevention, lower extremity strengthening, balance. Gently setting expectations to the patient's spouse given the patient's underlying advanced dementia the patient is unlikely to return to her former baseline status entirely. 3. Decreased oral intake. Left MAC obtained at 22.5 cm. Patient is slowly had improvement of her overall oral intake since initial altered mental status. She continues doing consume Ensure and ice cream. Rec made recommendation for supplement shakes as well as utilization of protein in smoothies as well as peanut butter and oatmeal and gradually introduce foods of the patient finds pleasurable and tolerable. Continue to monitor. Given the patient's advancing dementia would continue to expect a gradual decline. 4. Hypothyroidism. Patient spouse at discontinued all her oral medications. Advised that levothyroxine may be crushed given the patient has been having difficulty swallowing pills. No evidence of dysphagia with meals or liquids. Advised to administer levothyroxine 30 minutes before a meal. TSH on 03/10 recorded as 7.05. 5. Alzheimer's dementia. Followed by neurologist, Dr. Dakota Rabago. Given the patient's recent altered mental status and no evidence of acute anxiety or agitation would recommend removal of Zyprexa, Aricept, and sertraline. Advised may utilize quetiapine 25 mg once daily as needed for acute anxiety or agitation and reviewed side effects that may be a potential. Introduced that if increased behavioral disturbances then may need to schedule up to 3 times daily dosing of quetiapine. Would also remain off Depakote. Reviewed again today that dementia is a chronic, progressive illness. At high risk for falls. Given the patient's advanced age and chronic comorbidities a gradual decline is expected. 6. Excoriation to left buttocks and left upper thigh. Appears to be due to friction and not pressure related. Continue routine pericare and turning and repositioning every 2 hours while in bed. Patient spouse has been obtaining incontinent supplies from [facility] [place]. Made recommendation to apply Desitin barrier cream a pea-sized amount after each depends change. Request home health nursing for management. 7. Caregiver burden. Patient has a private caregiver from an agency coming 6 days/week however, it is now requiring 2 caregivers to provide care. Patient's spouse is demonstrating signs and symptoms of caregiver fatigue. Referral has been made to [facility] [employer] and patient may be eligible for caregiving hours likely through OA program per month to provide additional support. Patient spouse is alone with the patient overnight. Provided handout of local caregiving agencies for the patient's spouse to contact. 8. Advanced care planning. Patient spouse continues to remain reluctant addressing advance care planning and POLST. He wishes for longevity for the patient and for her to improve close to her former baseline status before this acute altered mental status change. He does not desire for the patient to be placed in a facility as she continues to decline and wishes to provide care within the home setting with additional support. Expressed concerns to the patient's spouse given both the patient and his advancing age and the patient's increasing caregiving needs that if an event were to occur to the patient's spouse if he is thought about plan B and at the present time he reports that he would wish her to be transferred to a memory care unit [place] [address]. We will continue to help assist with setting expectations, rapport building and advance care planning moving forward. FACE TO FACE: It would be a taxing considerable effort for the patient to leave her home secondary to her bedbound status, lower extremity weakness, and possible TIA. PT for strengthening program with a goal of ambulation with assistive device desired by spouse. Training with caregivers, equipment recommendations. OT for extremity strength training, energy conservation, and engagement of further activities to assist with ADLs. RN for wound care management to excoriation to left buttock and thigh. Home health aide for bathing for personal care and skin care. Total time spent 60 minutes with greater than 50% of this spent in counseling and coordination of care with patient spouse/DPOA and caregiver Eleni; supportive listening; review of Emergency Department visit record; assistance with pericare; review of skin care; re-introduction regarding terminal operations supervisor goals of care; recommendations for caregiving support; examination of patient; review of symptom management and anticipatory guidance. Disclaimer: The chart note was formulated using voice recognition technology and unfortunately sound alike errors may occur.
== END 2021-03-19 14:01 | disposition home or self-care (01) ==
LOC: PC 14:00
PROVIDERS: ATTEND Nurse Practitioner Family
DX: Z51.5 Encounter for palliative care (principal); G30.9 Alzheimer's disease, unspecified; F02.80 Dementia in other diseases classified elsewhere, unspecified severity, without behavioral disturbance, psychotic disturbance, mood disturbance, and anxiety; R62.7 Adult failure to thrive; R41.82 Altered mental status, unspecified; R63.8 Other symptoms and signs concerning food and fluid intake; E03.9 Hypothyroidism, unspecified; S30.810A Abrasion of lower back and pelvis, initial encounter; S70.312A Abrasion, left thigh, initial encounter; Z74.01 Bed confinement status
CPT/HCPCS: 99350

== ENCOUNTER 2021-04-01 09:30 | Outpatient (CLI) | payer MEDICARE, BC ==
--- NOTE | 2021-04-01 12:06 | CONSULTATION NOTE ---
Palliative Care Follow Up - Referral Referring Provider: Dr. Juan Driver Time of Visit: Referral setting: Home Referral Reason: Alzheimer's Dementia/FTT - Information Sources Records reviewed: Previous records reviewed History/Review of Systems obtained from: Patient, Family, Caregiver Exam limitations: Clinical condition (Advanced Dementia) - History of Present Illness Update Brief HPI Update: This is an 81-year-old female who was seen in follow-up today in her home due to Alzheimer's dementia, failure to thrive and physical deconditioning with her spouse/DPOA, Fuad present as well as her private caregiver, Eleni. The patient began developing cognitive decline that appeared to progress rapidly in 2017 with the patient and her spouse were vacationing in [place]. She had an extensive work-up during a hospital admission for approximately 10 days where she was disoriented and confused. She never had a definitive diagnosis outside of Alzheimer's dementia from a neurological standpoint. She is followed by neurology, Dr. Dakota Rabago at [facility]. The patient is presently being [facility] with behavioral health case manager, Ligia for nursing and physical therapy. She has had a initial physical therapy consultation with setting expectations in regards to the patient's ability to progress due to her overall physical deconditioning as well as her underlying Alzheimer's dementia and ability to follow commands. The patient presented to the emergency department on 03/10 demonstrating increased fatigue and sedation and had a full work-up at [facility] with negative imaging and urinalysis that demonstrated urine occult blood but RBCs 0-5, WBC 0-3, few bacteria with urine culture not dictated with no evidence of urinary tract infection. Since 03/10 she has essentially been bedbound. She has relaxed and has had less resistance to care. She is incont inent of bowel and bladder. Prior to presenting to the emergency department on 03/10 the patient was extremely hyper and active. She was also experiencing hallucinations which have been her baseline with her Alzheimer's dementia. She is no longer on her quetiapine or Zyprexa or Depakote. The patient's spouse and caregiver report that there have been no hallucinations reported since 03/10 that they have been made aware of. The patient continues to gain the bulk of her caloric intake from Ensure, ice cream as well as various fluids such as flavored water and orange juice. She periodically has been consuming bite-size sandwiches as well as peanut butter on toast. Discussed with the patient's private caregiver and spouse about moving forward with cut up or mechanical soft foods in an upright position past 30 degrees to prevent signs and symptoms of aspiration. She has not been coughing during meals. Caregiver reports that she seems to be reporting "ouch" to everything. They have not tried any interventions such as liquid acetaminophen. She is not always sensitive to touch. The patient is seen asleep in her hospital bed arousable to touch with no evidence of agitation or anxiety. She is in a hospital gown. She does display some strength and resistance when attempting to perform blood pressure check. Past Medical History: T Patient has a past medical history of Alzheimer's dementia, hypothyroidism, dementia, cataract extraction, Lasix OU, macular drusen OS, osteoporosis. Social History - Living Situation Living arrangement: At home Living Situation: With spouse/s.o. Support System: Patient grew up in [place]. She has no children. She and her , Fuad have been together for 25 to 30 years. 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 She also served with [employer]. She is written multiple [employer]. She has done [employer]. The patient and her spouse built the home that they were residing in on [address]. The patient has a private caregiver, Eleni who has been with the patient for approximately 2 months through health care agency [facility] based out of [place]. Eleni is present for 5 to 6 hours/day 6 days/week and otherwise the patient's spouse is her sole and primary caregiver. They have a hospital bed that they obtained from the [employer] as well as renting a bedside table from the [facility]. Discussed obtainment of a recliner chair and work with goals with physical therapy for standing pivoting to transfer to a chair. The patient's spouse is Presently working with [employer] and obtain an additional caregiving help as a backup for the primary caregiver Eleni as well as potentially for overnight. He reports he has forms that he has to fill out and send back which she plans on doing. Medications/Allergies - Medications Home Medications: Ambulatory Orders Medication Instructions Recorded Confirmed Levothyroxine Sodium [Synthroid] 75 mcg PO DAILY 01/24/21 04/01/21 QUEtiapine [SEROquel] 25 mg PO DAILY PRN 01/24/21 04/01/21 Acetaminophen 500mg/15ml 500 mg PO Q8HR PRN 02/08/21 04/01/21 Aspirin Chewable [St Ever 81 mg PO DAILY 03/19/21 04/01/21 Aspirin] - Allergies Allergies/Adverse Reactions: Allergies Allergy/AdvReac Type Severity Reaction Status Date / Time No Known Allergies Allergy Unknown Verified 03/10/21 09:07 Review of Systems - Constitutional Constitutional: reports: Fatigue (Was more alert yesterday during the day however, she continues to sleep a good majority during the day per spouse's report and this is supplemented by the patient's private caregiver.), Other (Left MAC today 22cm 04/01/2021; previous 22.5cm). denies: Fever - Eyes Eyes: reports: Vision loss (left eye per spouse and last eye exam 2017 indicates macular drusen to that affected eye) - Ears, Nose & Throat Ears, Nose & Throat: reports: Hearing loss. denies: Hearing aids, Dentures - Cardiovascular Cardiovascular: denies: Edema - Respiratory Respiratory: denies: Wheezing - Gastrointestinal Gastrointestinal: reports: Poor appetite (improving, but requires assistance with meals), Other (Incontinent of stool). denies: Constipation, Vomiting - Genitourinary Genitourinary: reports: Incontinence - Musculoskeletal Musculoskeletal: reports: Stiffness (left shoulder), Transfer issues (has been bedbound since 03/10/2021, working with PT). denies: Joint pain - Integumentary Integumentary: reports: Other (skin breakdown to left buttock and left thigh due to friction and fragile skin) - Neurological Neurological: reports: General weakness, Memory problems - Psychiatric Psychiatric: reports: Depression, Behavior disturbances (Caregiver reports more coherent thoughts over the last week). denies: Hallucinations (see HPI) - Endocrine Endocrine: reports: Hypothyroidism - Hematologic/Lymphatic Hematologic/Lymph: reports: Bruising (left forearm) - All Other Systems All Other Systems: reports: Reviewed and negative (patient is a poor historian due to dementia and ROS supplemented by caregiver and spouse) Physical Exam - Vital Signs Temperature: 36.4 C Pulse Rate: 78 O2 Saturation: 95 (on RA at rest) Blood Pressure: 110/70 (left arm) - Physical Exam General Appearance: positive: No acute distress, Alert, Other (resting in bed) Eyes Bilateral: positive: Normal inspection ENT: positive: No signs of dehydration, Other (+[place]; slight b/l temporal wasting) Neck: positive: Trachea midline Cardiovascular: positive: Regular rate & rhythm Respiratory: positive: No respiratory distress, Breath sounds nml Abdomen: positive: Non-tender, Soft, Nml bowel sounds, Other (Bladder nondistended). negative: Distended Skin: positive: Other (excoriation to right upper thigh scabbed over and excoriation due to friction above left hip without discharge or s/s of infection. Assisted with brief change and applied calmoseptine to affected area.) Extremities: positive: No pedal edema Neurologic/Psychiatric: positive: Disoriented to person, Disoriented to place, Disoriented to time, Weakness (Generalized with strong BUE strength when resistanting with Vital Signs and turning in bed but then relax with coaching), Unintelligible speech (+word salad with minimal speech), Other (Pleasantly confused) Palliative Care - POLST Patient has POLST: No Pain: No pain Drowsiness/Sedation: Moderate (4-6) Nausea: None Anorexia: Moderate (4-6) Dyspnea: None Depression: None Anxiety: None Sleep: Sleeps well Constipation: No Performance Status: FAST 7C - Palliative Care Discussion: Patient has been demonstrating functional and cognitive decline that has been progressive over the last 4 years due to her underlying Alzheimer's dementia and presented acutely on 03/18 to the emergency department with an altered mental status without any acute medical findings that were reversible. Given the patient's prior history and acute status change she may have developed an underlying TIA versus progression of the patient's Alzheimer's dementia. She continues in a bedbound state and is incontinent of bowel and bladder and dependent for all ADLs including assistance with meals. She is presently working with home health physical therapy with the patient's spouse is ultimate goal for her to be able to ambulate again. Continue to gently set expectations with the patient's spouse regarding the patient's being unable to likely meet that goal despite working with physical therapy and will need to see where she lands once working with physical therapy in her abilities. Discussed progression of Alzheimer's dementia and after a particular event this is typically a setback for those with dementia and typically do not return to their baseline function. Empathetic and supportive listening provided to the spouse who presently continues to wish to push the patient and does not "want to give up." Reintroduced goals of care and POLST again today. Patient spouse has not recovered the patient's living will for reference. He is in indicating that he would want some interventions related to CPR performed at the present time as he does not want to "let her go." Gently addressed that with CPR it is an all or nothing intervention and provided support as well as providing the bulk her choices for loving people for the patient's spouse's reference. He is leaning more to wards a DNR status however, he needs more time for reflection and to utilize the patient's living will for additional support and decision-making. Results - Lab Results Lab results reviewed: Yes Lab and Imaging Results: Urine results 03/10/2021 Impression and Recommendations - Palliative Care Impression: This is an 81-year-old female with a history of Alzheimer's dementia that previously had behavioral disturbances with sundowning behaviors now presenting as a FAS T7 C, physical deconditioning due to possible DVA versus advancement of Alzheimer's dementia, excoriation to skin x2 requiring home health services and additional caregiving support. The patient spouse was more open today and discussing advance care planning however, needs additional time to sort out decisions moving forward with additional support from the patient's living will. Provided supportive and empathetic listening. Palliative care will continue to provide support, tease out goals of care, care coordination, symptom management anticipatory guidance. Recommendations/Counseling Done: 1. Physical deconditioning due to possible TIA with bedbound status. The patient has gone from being ambulatory without an assistive device to bedbound status and 03/10/2021. There was no reversible causes found during emergency department admission. Gently reviewed with the patient's private caregiver as well as the patient's significant other regarding signs and symptoms of a urinary tract infection and reviewed that urinalysis was obtained and did not demonstrate a urinary tract infection and signs and symptoms of a UTI moving forward and will warrant evaluation and treatment with understanding verbalized. The patient's spouse did not wish to continue with occupational therapy but the patient is presently working with home health physical therapy. Gently reviewed with the patient spouse's with regarding alignment of his desires And goals for the patient moving forward and will need to see where the patient lands with recovery. Realistic goal is for the patient to be able to stand and pivot to a chair but request that they continue to work with home health physical therapy to set goals and expectations and assistance with equipment for the patient as well as the patient's caregivers do not obtain any injuries. We will continue to assist with providing support and teasing out expectations moving forward. 2. Decreased oral intake. Left MAC obtained today at 22 cm slight decrease from previous evaluation of 22.5 cm. The patient has had increased oral intake slowly over the last several weeks and has been more alert. Discussed with the patient's caregiver and spouse do not administer any meals if the patient is too sedated or tired with understanding verbalized. Presently taking ice cream and supplemental shakes such as Ensure as well as peanut butter, oatmeal and sandwiches and toast. Advised to advance as tolerated with fine cut up food that the patient finds pleasurable and to take use from the patient. Continue to encourage oral hydration. Continue to monitor. Given the patient's advancing dementia would continue to expect a gradual decline. 3.Excoriation x2 to right upper thigh and above left buttocks. Appears to be due to friction and not pressure related. Continue routine pericare and turning every 2 hours while in bed. Continue calmoseptine barrier cream applied to affected areas in a pea-sized amount. Request home health nursing to continue to follow. 4.Alzheimer's dementia. Followed by neurologist, Dr. Dakota Rabago. Given the patient's recent altered mental status no evidence of acute anxiety or agitation would remain off Zyprexa, Aricept, sertraline and Depakote. Does have available quetiapine 25 mg to be utilized once daily as needed for acute anxiety or agitation and reviewed side effects that may be a potential. The present time is has not been required. Reviewed again today with the patient's spouse and primary caregiver that dementia is chronic and a progressive illness. The patient is at risk for falls. Aspiration precautions. Given the patient's advanced age and chronic comorbidities a gradual Luther is expected. 5. Advance care planning. Patient spouse continues to remain reluctant addressing advance care planning and POLST today this was readdressed. The patient spouse wishes to have reference of the patient's living will before making a firm decision. Reviewed CPR. Moving forward there is a potential The patient spouse would like DN AR but he needs to have the support of the patient's living will and additional thought before making a final decision at the present time. The patient spouse does have experience with CPR on the patient's uncle who ultimately did not survive as a reference. Continue to provide support and advance decision making processes and plan to review at next follow-up. Total time spent 60 minutes with greater than 50% of this spent in counseling and coordination of care with patient''s spouse and caregiver; examination of patient; setting expectations; review of POLST;review of pain and symptom management and anticipatory guidance. Disclaimer: The chart note was formulated using voice recognition technology and unfortunately sound alike errors may occur.
== END 2021-04-01 09:31 | disposition home or self-care (01) ==
LOC: PC 09:30
PROVIDERS: ATTEND Nurse Practitioner Family
DX: Z51.5 Encounter for palliative care (principal); Z72.3 Lack of physical exercise; Z74.01 Bed confinement status; R63.8 Other symptoms and signs concerning food and fluid intake; S70.311A Abrasion, right thigh, initial encounter; S30.810A Abrasion of lower back and pelvis, initial encounter; X58.XXXA Exposure to other specified factors, initial encounter; G30.9 Alzheimer's disease, unspecified; F02.80 Dementia in other diseases classified elsewhere, unspecified severity, without behavioral disturbance, psychotic disturbance, mood disturbance, and anxiety
CPT/HCPCS: 99350

== ENCOUNTER 2021-04-26 11:45 | Outpatient (CLI) | payer MEDICARE, BC ==
--- NOTE | 2021-04-26 14:36 | CONSULTATION NOTE ---
Palliative Care Follow Up - Referral Referring Provider: Dr. Juan Driver Time of Visit: [id number] Referral setting: Home Referral Reason: Alzheimer's Dementia/FTT/Advanced Care Planning - Information Sources Records reviewed: Previous records reviewed History/Review of Systems obtained from: Family (spouse/CASS Merida), Caregiver (Eleni) Exam limitations: Clinical condition (Advanced Dementia) - History of Present Illness Update Brief HPI Update: This is an 81-year-old female who was seen in follow-up today in her home due to Alzheimer's dementia, failure to thrive and debility with her spouse/CASS Merida present as well as her private caregiver, Eleni. The patient began developing cognitive decline that appeared to be progressing rapidly in 2016 when the patient and her spouse were vacationing in [place]. She had an extensive work-up during a hospital admission for approximately 10 days where she was disoriented and confused. She never had a definitive diagnosis outside of Alzheimer's dementia from a neurological standpoint. She is followed by neurology, Dr. Dakota Rabago at [facility]. On 03/10 the patient sustained an unknown event that resulted in her inability to ambulate and no longer able to self feed. She had a work-up that resulted in negative imaging as well as urinalysis. At the advice of her neurologist her quetiapine, Zyprexa, and Depakote was discontinued. There have been no behavioral disturbances reported by the patient's spouse or caregiver. However, she remains quite resistant to care at times. Due to her resulting bedbound state, physical therapy, occupational therapy and home health nursing were requested. However, this unfortunately did not result in the desired response to both the patient's private caregiver and spouse with increased assistance, recommendations and oversight. Over the preceding week since 03/10 the patient has become more alert and will engaged with a few words. However, she mainly spends sleeping either in her hospital bed are in her chair. She requires assistance with feeding with her spouse or caregiver and ensuring that she is fully awake before implementation. They are doing much with calorie shakes as well as peanut butter, hummus, toast as these are items that the patient is interested in. Implementation of liquid acetaminophen 500 mg first thing the morning has been effective as the patient has appeared to be more comfortable for both the patient's caregiver and spouse's report. She is no longer saying "ouch" to gentle touch. The patient is seen resting out of bed in her reclining chair. She has a hospital gown on that is clean sweatpants on her bottom. No evidence of acute distress and she appears relaxed. She does display some upper extremity strength and resistance when attempting to perform assessment and blood pressure check. Past Medical History: Patient has a past medical history of Alzheimer's dementia, hypothyroidism, dementia, cataract extraction, Lasix OU, macular drusen OS, osteoporosis. Social History - Living Situation Living arrangement: At home Living Situation: With spouse/s.o. Support System: Patient grew up in [place]. She has no children. She and her , Fuad have been together for 25 to 30 years. 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 She also served with the [email or web address] of [facility]. She is written multiple [employer]. She has done [employer]. The patient and her spouse built the home that they were residing in on [address]. The patient has a private caregiver, Eleni. Eleni is present for 5 to 6 hours/day 6 days/week and otherwise the patient's spouse is her sole and primary caregiver. The spouse recently contracted a back-up caregiver, Shaylee, to assist with Eleni is not available or is off who lives locally. The patient's spouse today expressed concerns that an APS officer visited their home and left a card a few weeks ago and there has not been any follow-up. The patient has always appeared to be well taking care of of and any recommendation were made that the patient has the spouse has rectified and obtained.Supportive listening provided to the patient's spouse. Medications/Allergies - Medications Home Medications: Ambulatory Orders Medication Instructions Recorded Confirmed Levothyroxine Sodium [Synthroid] 75 mcg PO DAILY 01/24/21 04/01/21 QUEtiapine [SEROquel] 25 mg PO DAILY PRN 01/24/21 04/01/21 Acetaminophen 500mg/15ml 500 mg PO Q8HR PRN 02/08/21 04/01/21 Aspirin Chewable [St Ever 81 mg PO DAILY 03/19/21 04/01/21 Aspirin] - Allergies Allergies/Adverse Reactions: Allergies Allergy/AdvReac Type Severity Reaction Status Date / Time No Known Allergies Allergy Unknown Verified 03/10/21 09:07 Review of Systems - Constitutional Constitutional: reports: Fatigue (Has become more alert but does sleep with multiple naps during the day), Other (Left MAC 21.5cm 04/26/2021; Left MAC 22cm 04/01/2021; previous 22.5cm). denies: Fever - Eyes Eyes: reports: Vision loss (left eye per spouse and last eye exam 2017) - Ears, Nose & Throat Ears, Nose & Throat: reports: Hearing loss. denies: Hearing aids, Dentures - Cardiovascular Cardiovascular: denies: Edema - Respiratory Respiratory: reports: Other (Recently cough when a straw was used, otherwise, no coughing reported during meals or liquid consumption). denies: Wheezing - Gastrointestinal Gastrointestinal: reports: Poor appetite (requires assistance with meals with protein supplementation), Other (Incontinent of stool). denies: Constipation, Vomiting - Genitourinary Genitourinary: reports: Incontinence - Musculoskeletal Musculoskeletal: reports: Assistive devices (astinder lift in the home), Transfer issues (has been bedbound since 03/10/2021 s/p PT). denies: Joint pain - Integumentary Integumentary: denies: Rash - Neurological Neurological: reports: General weakness, Memory problems - Psychiatric Psychiatric: reports: Depression, Behavior disturbances. denies: Hallucinations - Endocrine Endocrine: reports: Hypothyroidism - Hematologic/Lymphatic Hematologic/Lymph: denies: Recurrent infections - All Other Systems All Other Systems: reports: Reviewed and negative (patient is a poor historian due to dementia and ROS supplemented by caregiver and spouse) Physical Exam - Vital Signs Temperature: 36.2 C Pulse Rate: 68 O2 Saturation: 94 Blood Pressure: 107/53 (right arm) - Physical Exam General Appearance: positive: No acute distress, Alert, Other (resting OOB in chair) Eyes Bilateral: positive: Normal inspection ENT: positive: No signs of dehydration, Other (+[place]; b/l temporal wasting) Neck: positive: Trachea midline Cardiovascular: positive: Regular rate & rhythm Respiratory: positive: No respiratory distress, Breath sounds nml. negative: Rales Abdomen: positive: Non-tender, Soft, Nml bowel sounds, Other (Bladder nondistended) Skin: positive: Pallor Extremities: positive: No pedal edema Neurologic/Psychiatric: positive: Disoriented to person, Disoriented to place, Disoriented to time, Weakness (Generalized with strong BUE strength), Unintelligible speech (+word salad with minimal speech), Other (Pleasantly confused) Palliative Care - POLST Patient has POLST: Yes POLST Status: DNR, Selective Treatment Pain: No pain Sleep: Sleeps well Constipation: No Performance Status: Patient is no longer ambulatory. She is able to stand and pivot to a chair. She is a two-person assist to get back to bed. She requires assistance with feeding. Incontinent of bowel and bladder. No recent falls. F AST 7C - Palliative Care Discussion: The patient unfortunately sustained an unknown event versus progression of her dementia in February 2021 that has now resulted in her inability to walk and require increased assistance including feeding. Her alertness has improved and she continues to remain comfortable. She is status post home health for physical therapy and Occupational Therapy however, Both the patient spouse in private caregiver felt that home health services were analyzing them" finding of a slacking." The patient spouse continues to be extremely attentive to her needs. Any suggestions that is offered for safety he follows through upon. The patient is demonstrating continued progression of her Alzheimer's dementia and she has not returned to her previous baseline function much to the disappointment of the patient's spouse. She continues to have gradual weight loss despite increases in caloric intake. Reviewed with patient spouse today if at any point he would wish to have a feeding tube placed to assist with caloric intake and he declines stating that this is not something that the patient herself would want and recognizing that she would not understand and potentially pulled the item out. Able to reintroduce POLST again today. Patient spouse requests that he wishes to ultimately focus on safety and comfort within the home environment for as long as possible. POLST completed as DN AR with selective interventions and no artificial nutrition by tube. The patient spouse continues to Demonstrate emotional difficulty as the patient is dementia continues to progress. Supportive and empathetic listening provided to the patient's spouse today. Impression and Recommendations - Palliative Care Impression: This is an 81-year-old female with a history of Alzheimer's dementia with previous behavioral disturbances presenting as a FAS T7 C, debility, and protein calorie malnutrition. The patient spouse wishes to focus on safety and comfort within the home environment. Provided supportive and empathetic listening today. Palliative care will continue to provide support, build rapport, care coordination, symptom management and anticipatory guidance. Recommendations/Counseling Done: 1. Protein calorie malnutrition. In the setting of decreased oral intake with increase in protein consumption. Progression of dementia is likely underlying cause. Left MAC decreased to 21.5 cm with previous MAC 22 cm. Both the patient and spouse and caregiver recognize to only have the patient sitting up and slowly feed when the patient is focused and alert. Continue to advance diet as tolerated with fine chopped up foods that the patient finds pleasurable and continue Ensure supplementation as well as peanut butter and shakes. Continue to encourage oral hydration. Patient spouse is clear would avoid any artificial nutrition by tube. Continue to monitor. Given the patient's advancing dementia would continue to expect a gradual decline. 2. Hypothyroidism. Continue levothyroxine as prescribed. Will obtain TSH and free T4 at next visit at the request the patient's spouse. Will adjust medication as needed based on labwork. In the interim will provide refill if needed. 3. Debility with bedbound status. Patient is no longer ambulatory and has resulted in a bedbound status as of 03/10/2021. No reversible causes were found. Unclear if the patient sustained an event versus progression of her dementia. Status post home health physical therapy. Patient Continues to be supported by a her spouse and private caregiver. Fall precautions. 4. Alzheimer's dementia. Followed by neurologist, kyle during [facility]. No longer on Zyprexa, Aricept, sertraline or Depakote. Patient does have quetiapine 25 mg to be utilized once daily as needed for any acute anxiety or agitation. None outside of intermittent resistance to care, the patient is not displaying any signs of behavioral disturbances. Chronic. Progressive. On no disease modifying agents. Aspiration precautions. Given the patient's advanced age and chronic comorbidities a gradual decline is expected. 5. Advanced care planning. The patient's spouse was open to discussing POLST in place and establish as DN AR with selective interventions and no artificial nutrition by tube. He wishes to focus on safety and comfort within their home environment. He is actively looking for additional caregiving support to have backup assistance if the patient's primary caregiver needs time off or is unavailable. Therefore, the patient's spouse is making appropriate steps and planning for future events. He also acknowledges that he is working with his sister, Ira, who lives out of state to set up a plan if anything were to happen to him medically what the plan would be in regards to the patient herself. Supportive and empathetic listening provided today. Continue to help support and tease out goals of care moving forward. Total time spent 75 minutes with greater than 50% of the spent in counseling and coordination of care with the patient's spouse and caregiver; review of POLST and discussion of alternative plans moving forward; examination of patient; review of pain and symptom management and anticipatory guidance. Disclaimer: The chart note was formulated using voice recognition technology and unfortunately sound alike errors may occur.
== END 2021-04-26 11:46 | disposition home or self-care (01) ==
LOC: PC 11:45
PROVIDERS: ATTEND Nurse Practitioner Family
DX: Z51.5 Encounter for palliative care (principal); E46 Unspecified protein-calorie malnutrition; E03.9 Hypothyroidism, unspecified; G30.9 Alzheimer's disease, unspecified; F02.80 Dementia in other diseases classified elsewhere, unspecified severity, without behavioral disturbance, psychotic disturbance, mood disturbance, and anxiety; Z74.01 Bed confinement status; Z66 Do not resuscitate
CPT/HCPCS: 99350

== ENCOUNTER 2021-05-15 11:28 | Outpatient (CLI) | payer MEDICARE, BC ==
[2021-05-15 12:19] LABS: T4 (THYROXINE) 12.81 ug/dL (6.09-12.23)
[2021-05-15 12:23] LABS: THYROID STIMULATING HORMONE < 0.08 uIU/mL (0.34-5.60)
--- NOTE | 2021-05-15 14:28 | CONSULTATION NOTE ---
Palliative Care Follow Up - Referral Referring Provider: Dr. Juan Driver Time of Visit: Intiated 1020 Referral setting: Home Referral Reason: Alzheimer'sDementia/FTT/Hypothyroidism - Information Sources Records reviewed: Previous records reviewed History/Review of Systems obtained from: Family (spouse/CASS Merida) Exam limitations: Clinical condition (Advanced Dementia) - History of Present Illness Update Brief HPI Update: This is an 81-year-old female who was seen in follow-up today in her home due to Alzheimer's dementia, failure to thrive, and hypothyroidism with her spouse/CASS Merida present. The patient's primary private caregiver, Eleni is present today due to a family emergency. The patient began developing cognitive decline that began progressing rapidly in 2016 when the patient and her spouse were vacationing in [place]. She had an extensive work-up during a hospital admission for approximately 10 days where she was disoriented and confused. She never had a definitive diagnosis outside of Alzheimer's dementia from a neurological standpoint. She has been followed by neurology, Dr. Dakota Rabago at [facility]. On 03/10/2021 the patient sustained an unknown event that resulted in an inability to ambulate and be no longer able to self feed. She was seen and evaluated in the emergency department and had a negative work-up with imaging as well as urinalysis. It was advised by her neurologist that the quetiapine, Zyprexa and Depakote be discontinued. The patient continues without any behavioral disturbances warranting and the reinitiation of quetiapine, Zyprexa or Depakote. She remains off of disease modifying agents for her Alzheimer's dementia. She is status post home health nursing, physical therapy, and Occupational Therapy. Unfortunately, these interventions did not provide the ultimate assistance that the spouse was desiring. The patient remains nonambulatory and requires assistance with feeding. She is more alert and engaged than she has been on previous occasions which the spouse perceives as subtle improvements. She continues to spend the majority of her time in her hospital bed or in her chair. Her caregiver or her spouse provide assistance with feeding when she is fully awake. She continues to have a diet mainly consistent of protein drinks, smoothies with introduction of some solid foods such as peanut butter and toast and oatmeal. Recently, the patient has been able to hold her own drink but is unable to drink independently. It is hit or miss is acetaminophen liquid is available and if it is, the patient spouse or caregiver will administer 500 mg first thing in the morning for the patient's ultimate comfort. Recently, the liquid product has not been available and therefore has not been administered and there has been no increased evidence of discomfort per the spouse's report. Patient has a longstanding history of hypothyroidism per the 's report. Presently she is on Synthroid 75 mcg daily and will obtain lab work today to reevaluate dosage in the setting of the patient's recent weight loss. The patient is seen resting in bed in hospital gown that is clean. No evidence of acute distress. She does display upper extremity strength and resistance when attempting to move on assessment and blood draw. Past Medical History: Patient has a past medical history of Alzheimer's dementia, hypothyroidism, dementia, cataract extraction, Lasix OU, macular drusen OS, osteoporosis. Social History - Living Situation Living arrangement: At home Living Situation: With spouse/s.o. Support System: Patient grew up in [place]. She has no children. She and her , Fuad have been together for 25 to 30 years. 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 She also served with the [employer] of [employer]. She has done mountaineering. Last winter she did go skiing. The patient and her spouse built the home that they are residing in on [address]. The patient has a private caregiver, Eleni. Eleni is present for 5 to 6 hours/day 6 days/week and otherwise the patient's spouse is her sole and primary caregiver. The spouse recently contracted a back-up caregiver, Shaylee, to assist with Eleni is not available or is off who lives locally. There was a follow-up with [facility]) last week per spouse report with no findings or follow-up to be preformed per his report. Medications/Allergies - Medications Home Medications: Ambulatory Orders Medication Instructions Recorded Confirmed Levothyroxine Sodium [Synthroid] 50 mcg PO DAILY 01/24/21 05/15/21 QUEtiapine [SEROquel] 25 mg PO DAILY PRN 01/24/21 05/15/21 Acetaminophen 500mg/15ml 500 mg PO Q8HR PRN 02/08/21 05/15/21 Aspirin Chewable [St Ever 81 mg PO DAILY 03/19/21 05/15/21 Aspirin] - Allergies Allergies/Adverse Reactions: Allergies Allergy/AdvReac Type Severity Reaction Status Date / Time No Known Allergies Allergy Unknown Verified 05/15/21 20:26 Review of Systems - Constitutional Constitutional: reports: Other (Left MAC 21.5cm 05/15/2021; Left MAC 21.5cm 04/26/2021; Left MAC 22cm 04/01/2021; previous 22.5cm). denies: Fever - Eyes Eyes: reports: Vision loss (left eye per spouse and last eye exam 2017) - Ears, Nose & Throat Ears, Nose & Throat: reports: Hearing loss. denies: Hearing aids, Dentures, Bleeding gums - Cardiovascular Cardiovascular: denies: Edema - Respiratory Respiratory: reports: Other (No cough reported during meals). denies: Wheezing - Gastrointestinal Gastrointestinal: reports: Poor appetite (requires assistance with meals with protein supplementation), Other (Incontinent of stool). denies: Constipation (bowel movement daily reported), Vomiting - Genitourinary Genitourinary: reports: Incontinence. denies: Hematuria - Musculoskeletal Musculoskeletal: reports: Assistive devices (satinder lift in the home), Transfer issues (has been bedbound since 03/10/2021 s/p HH PT). denies: Joint pain - Integumentary Integumentary: denies: Rash - Neurological Neurological: reports: General weakness, Memory problems - Psychiatric Psychiatric: reports: Depression, Behavior disturbances. denies: Hallucinations - Endocrine Endocrine: reports: Hypothyroidism - Hematologic/Lymphatic Hematologic/Lymph: denies: Recurrent infections - All Other Systems All Other Systems: reports: Reviewed and negative (patient is a poor historian due to dementia and ROS supplemented by spouse) Physical Exam - Vital Signs Temperature: 36.5 C Pulse Rate: 75 Blood Pressure: 110/64 (left arm) - Physical Exam General Appearance: positive: No acute distress, Alert, Other (sitting up in bed) Eyes Bilateral: positive: Normal inspection ENT: positive: No signs of dehydration, Other (+[place]; b/l temporal wasting; slight chapped lips) Neck: positive: Trachea midline Cardiovascular: positive: Regular rate & rhythm Respiratory: positive: No respiratory distress, Breath sounds nml Abdomen: positive: Non-tender, Soft, Nml bowel sounds Skin: positive: Pallor, Bruising (left UE, resolving) Extremities: positive: No pedal edema Neurologic/Psychiatric: positive: Disoriented to person, Disoriented to place, Disoriented to time, Weakness (Generalized with strong BUE strength), Unintelligible speech (+word salad with only a few words spoken), Other (P leasantly confused) Palliative Care - POLST Patient has POLST: Yes POLST Status: DNR, Selective Treatment Pain: No pain Anorexia: Moderate (4-6) Dyspnea: None Depression: None Sleep: Sleeps well Constipation: No Performance Status: FAST 7C - Palliative Care Discussion: The patient unfortunately sustained an unknown event versus progression of her dementia in February 2021 that has now resulted in her inability to ambulate and increased assistance including feeding. Her alertness has steadily improved and she continues to demonstrate that she is comfortable and not in distress. The patient spouse remains optimistic given the minor improvement. Continue to set expectations with the patient's spouse regarding the likelihood of the patient returning to her previous baseline given her underlying dementia. Presently, her weight loss has stabilized and her left MAC is at 21.5 cm and holding. The patient spouse is previously expressed that he would not wish to have a feeding tube placed to provide assistance with caloric intake. Given the patient's weight loss and generalized decline it is appropriate to obtain a lab work to evaluate the patient's thyroid and Synthroid dosage as she might likely require a dose reduction. Overall, the patient tolerated obtainment of lab work well with assistance from the patient's spouse. The patient's spouse continues to express concern regarding the need of continued caregiving assistance as he cannot perform all duties independently. Continue to encourage exploring potential options if something were to happen to him as well as additional assistance from the patient's primary caregiver. Implored the patient spouse to follow-up again with [facility] regarding caregiving support. Results - Lab Results Lab results reviewed: Yes Lab and Imaging Results: Lab Results x24hrs 05/15/21 Range/Units 10:40 TSH < 0.08 L (0.34-5.60) uIU/mL Thyroxine (T4) 12.81 H (6.09-12.23) ug/dL 03/10/2021 TSH 7.05 Impression and Recommendations - Palliative Care Impression: This is an 81 year old female with a history of Alzheimer's dementia with previous behavioral disturbances, controlled, presently as a FAS T7 C, failure to thrive, debility, and hypothyroidism. The patient weight loss has presently stabilized and she is comfortable in her home environment. Lab work obtained today to reevaluate hypothyroidism. Palliative care will continue provide support, build rapport, care coordination, symptom management and anticipatory guidance. Recommendations/Counseling Done: 1. Hypothyroidism TSH 7.05. Patient has been on levothyroxine 75 mcg. TSH obtained today less than 0.08 reviewed via phone with patient's spouse after lab work obtained and will reduce dose to 50 mcg daily and reassess at next evaluation. Not unexpected to require a dose reduction given the patient's age and recent weight loss. Continue to follow. Goal TSH per [place] [employer] guidelines is 4-6 given the patient's age and comorbidities. New Rx for levothyroxine 50 mcg sent to [facility] per spouse's request. 2. Protein calorie malnutrition. Stabilized. Progression of dementia as likely underlying cause. Left MAC stabilized at 21.5 cm presently. Patient continues to have a high protein diet with supplementation. Continue to encourage oral hydration. Spouse has been clear regarding the desire to avoid any artificial nutrition by tube. Continue to monitor. 3. Alzheimer's dementia. Followed by neurologist. No longer on Zyprexa, Aricept, sertraline or Depakote. Patient does have quetiapine 25 mg to be utilized once daily as needed for any acute anxiety or agitation. Patient has not been displaying any signs or symptoms of behavioral disturbances per spouse's report. Chronic. Progressive. Fall precautions. On no disease modifying agents. Aspiration precautions. Given the patient's advanced age and chronic comorbidities a gradual Luther is expected. 4. Caregiver burden. Patient spouse is providing caregiving services. Private caregiver provides assistance 6 days/week during the day. Discussed obtainment of backup caregiving support in preparation if the patient's primary caregiver is unavailable or additional assistance needed with spouse in agreement. Encourage spouse to follow-up with [facility] regarding caregiving assistance. Ultimate goal is to keep the patient at home and safe. 5. Advanced care planning. Patient has POLST in place as DN AR with selective interventions. CPT 49313 Plan of care reviewed at length with the patient's spouse/Fuad ODELL questions answered and addressed and in agreement to move forward. Disclaimer: The chart note was formulated using voice recognition technology and unfortunately sound alike errors may occur.
== END 2021-05-15 11:29 | disposition home or self-care (01) ==
LOC: PC 11:28
PROVIDERS: ATTEND Nurse Practitioner Family
DX: Z51.5 Encounter for palliative care (principal); G30.9 Alzheimer's disease, unspecified; F02.80 Dementia in other diseases classified elsewhere, unspecified severity, without behavioral disturbance, psychotic disturbance, mood disturbance, and anxiety; R62.7 Adult failure to thrive; E03.9 Hypothyroidism, unspecified; E46 Unspecified protein-calorie malnutrition; Z79.899 Other long term (current) drug therapy; Z74.01 Bed confinement status; Z66 Do not resuscitate
CPT/HCPCS: 36415; 84436; 84443; 99349

== ENCOUNTER 2021-05-30 13:00 | Outpatient (CLI) | payer MEDICARE, BC ==
--- NOTE | 2021-05-30 15:27 | CONSULTATION NOTE ---
Palliative Care Follow Up - Referral Referring Provider: Dr. Juan Driver Time of Visit: [id number] Referral setting: Home Referral Reason: FTT/Pain/Dementia/Ecchymosis - Information Sources Records reviewed: Previous records reviewed History/Review of Systems obtained from: Family (spouse, Fuad), Caregiver (Eleni) Exam limitations: Clinical condition (Advanced Dementia) - History of Present Illness Update Brief HPI Update: This is an 81-year-old female who was seen in follow-up today at the request of her caregiver and spouse in her home due to Alzheimer's dementia, failure to thrive, bruising, and no noted pain with her spouse/DPOAFuad and caregiver, Eleni present. The patient began developing cognitive decline that progressed rapidly in 2016 with the patient and her spouse were vacationing in [place]. She had an extensive work-up during a hospital admission for approximately 10 days where s he was disoriented and confused. She never had a definitive diagnosis outside of Alzheimer's dementia from a neurological standpoint. She has been followed by neurology, Dr. Dakota Rabago at [facility]. the patient sustained an unknown event that resulted in inability to ambulate and no longer be able to self feed. She was seen and evaluated in the emergency department and had a negative work-up with imaging as well as urinalysis. It was advised by her neurologist, that quetiapine, Zyprexa, and Depakote be discontinued. The patient has not had behavioral disturbances that has warranted reinitiation of any of these medications. She remains off any disease modifying agents for her Alzheimer's dementia. The patient continues to show decline. She is eating less this week. Her spouse and caregiver provide her thickened shake and have recently started using nectar thick with liquids. They have not noted any coughing since modifying her diet. Thursday, she barely ate anything and has been sleeping more during the day. On last evaluation the end of April 2021 it was noted that she had a bruise to her left upper arm. It has subsequently enlarged and increased down to her lower forearm and along her elbow. Presently, her aspirin is being held. Her spouse is intermittently been applying a cool compress or ice to the site. There has been no evidence of discomfort when touching the area or providing rotation in bed that would indicate pain to her left upper extremity. The last few days, her caregiver expresses concern as the patient is not moving like she used to. She has been crying out in discomfort especially when doing care. The patient's spouse and caregiver have not been able [place] and are expressing concerns regarding having an additional tool to make the patient comfortable. The patient's caregiver does not want to do anything that would cause distress or discomfort to the patient. Today, they were able to get the patient out of bed but yesterday were unable to. The patient is seen sitting up out of bed in her hospital gown that is clean. She is sleeping soundly and arouses briefly with deep stimulation by touch. No evidence of acute distress. Past Medical History: Patient has a past medical history of Alzheimer's dementia, hypothyroidism, dementia, cataract extraction, Lasix OU, macular drusen OS, osteoporosis. Social History - Living Situation Living arrangement: At home Living Situation: With spouse/s.o. Support System: This is an 81-year-old female who was seen in follow-up today in her home due to Alzheimer's dementia, failure to thrive, and hypothyroidism with her spouse/CASS Merida present. The patient's primary private caregiver, Eleni is present today due to a family emergency. The patient began developing cognitive decline that began progressing rapidly in 2016 when the patient and her spouse were vacationing in [place]. She had an extensive work-up during a hospital admission for approximately 10 days where she was disoriented and confused. She never had a definitive diagnosis outside of Alzheimer's dementia from a neurological standpoint. She has been followed by neurology, Dr. Dakota Rabago at [facility]. On 03/10/2021 the patient sustained an unknown event that resulted in an inability to ambulate and be no longer able to self feed. She was seen and evaluated in the emergency department and had a negative work-up with imaging as well as urinalysis. It was advised by her neurologist that the quetiapine, Zyprexa and Depakote be discontinued. The patient continues without any behavioral disturbances warranting and the reinitiation of quetiapine, Zyprexa or Depakote. She remains off of disease modifying agents for her Alzheimer's dementia. She is status post home health nursing, physical therapy, and Occupational Therapy. Unfortunately, these interventions did not provide the ultimate assistance that the spouse was desiring. The patient remains nonambulatory and requires assistance with feeding. She is more alert and engaged than she has been on previous occasions which the spouse perceives as subtle improvements. She continues to spend the majority of her time in her hospital bed or in her chair. Her caregiver or her spouse provide assistance with feeding when she is fully awake. She continues to have a diet mainly consistent of protein drinks, smoothies with introduction of some solid foods such as peanut butter and toast and oatmeal. Recently, the patient has been able to hold her own drink but is unable to drink independently. It is hit or miss is acetaminophen liquid is available and if it is, the patient spouse or caregiver will administer 500 mg first thing in the morning for the patient's ultimate comfort. Recently, the liquid product has not been available and therefore has not been administered and there has been no increased evidence of discomfort per the spouse's report. Patient grew up in [place]. She has no children. She and her , Fuad have been together for 25 to 30 years. 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 She also served with [employer]. She has done [employer]. Last winter she did go skiing. The patient and her spouse built the home that they are residing in on [address]. The patient has a private caregiver, Eleni. Eleni is present for 5 to 6 hours/day 6 days/week and otherwise the patient's spouse is her sole and primary caregiver. The spouse recently contracted a back-up caregiver, Shaylee, to assist with Eleni is not available or is off who lives locally. s/p APS evaluation Medications/Allergies - Medications Home Medications: Ambulatory Orders Medication Instructions Recorded Confirmed Levothyroxine Sodium [Synthroid] 50 mcg PO DAILY 01/24/21 05/15/21 QUEtiapine [SEROquel] 25 mg PO DAILY PRN 01/24/21 05/15/21 Acetaminophen 500mg/15ml 500 mg PO Q8HR PRN 02/08/21 05/15/21 Aspirin Chewable [St Ever 81 mg PO DAILY 03/19/21 05/15/21 Aspirin] Morphine Oral Soln [Roxanol] 2.5 mg PO Q6H PRN 05/30/21 05/30/21 Senna [Senokot] 8.6 mg PO DAILY PRN 05/30/21 05/30/21 polyethylene glycoL 3350 [Miralax] 17 gm PO DAILY PRN 05/30/21 05/30/21 - Allergies Allergies/Adverse Reactions: Allergies Allergy/AdvReac Type Severity Reaction Status Date / Time No Known Allergies Allergy Unknown Verified 05/15/21 20:26 Review of Systems - Constitutional Constitutional: reports: Fatigue (increased napping during the day and no longer engaged with watching TV), Other (Left MAC 21.5cm 05/15/2021; Left MAC 21.5cm 04/26/2021; Left MAC 22cm 04/01/2021; previous 22.5cm). denies: Fever - Eyes Eyes: reports: Vision loss (left eye per spouse and last eye exam 2017) - Ears, Nose & Throat Ears, Nose & Throat: reports: Hearing loss. denies: Hearing aids, Dentures - Cardiovascular Cardiovascular: denies: Edema - Respiratory Respiratory: reports: Other (see HPI regarding coughing during meals and with liquids). denies: Wheezing - Gastrointestinal Gastrointestinal: reports: Poor appetite (requires assistance with meals with protein supplementation), Other (Incontinent of stool). denies: Constipation (bowel movement daily reported), Vomiting - Genitourinary Genitourinary: reports: Incontinence - Musculoskeletal Musculoskeletal: reports: Assistive devices (satinder lift in the home), Transfer issues (has been bedbound since 03/10/2021 s/p HH PT). denies: Joint pain - Integumentary Integumentary: denies: Rash - Neurological Neurological: reports: General weakness, Memory problems - Psychiatric Psychiatric: reports: Depression, Behavior disturbances. denies: Hallucinations - Endocrine Endocrine: reports: Hypothyroidism (dose change to synthroid on 05/15/2021) - Hematologic/Lymphatic Hematologic/Lymph: denies: Recurrent infections - All Other Systems All Other Systems: reports: Reviewed and negative (patient is a poor historian due to dementia and ROS supplemented by spouse and caregiver) Physical Exam - Vital Signs Temperature: 36.3 C Pulse Rate: 83 O2 Saturation: 93 (on RA) Blood Pressure: 125/72 (left wrist) - Physical Exam General Appearance: positive: No acute distress, Alert, Other (sitting up in chair with clean hospital gown, frail) Eyes Bilateral: positive: Normal inspection ENT: positive: Other (+[place]; b/l temporal wasting; slight chapped lips due to mouth breathing during sleep) Neck: positive: Trachea midline Cardiovascular: positive: Regular rate & rhythm Respiratory: positive: No respiratory distress, Breath sounds nml, Diminished in bases Abdomen: positive: Non-tender, Soft, Nml bowel sounds. negative: Distended Skin: positive: Pallor, Bruising (Left UE appx 20cm in length from above and below left elbow that is resolving with purple and green and yellow to bruise indicative of age of bruise without tenderness to palpation) Extremities: positive: No pedal edema Neurologic/Psychiatric: positive: Disoriented to person, Disoriented to place, Disoriented to time, Weakness (Generalized with strong BUE strength), Unintelligible speech (nonverbal today), Other (Pleasantly confused) Palliative Care - POLST Patient has POLST: Yes POLST Status: DNR, Selective Treatment Pain: Comment (Patient's caregiver and spouse report noting the patient expressing displays of discomfort with crying out as well as with routine care over the last few days that was not present previously.) Drowsiness/Sedation: Moderate (4-6) Anorexia: Moderate (4-6) Sleep: Sleeps well Constipation: No Performance Status: FAS T7 C - Palliative Care Discussion: The patient unfortunately sustained an unknown event versus progression of her dementia in February 2021 and now this is resulted in her inability to ambulate with increased assistance including feeding. She is showing some further progression in the last 1 to 2 weeks with decreased oral intake and alertness. She has had weight loss from the standpoint of reduction in her MAC. The patient spouse is previously expressed that he would not wish to have a feeding tube in place to provide assistance with caloric intake. Gently introduced to the patient's spouse today that the patient would be appropriate for hospice services within the home that would align with his goals of having the patient remain at home and to be comfortable. However, the patient spouse is reluctant to proceed with hospice services given trepidation in his experience with the [facility] agency with home health did not offer the support that both he and the caregiver were desiring and therefore are reluctant to have additional health team members in the home that may hinder care despite reassurance. The patient spouse wishes to contemplate moving forward with hospice services. Patient is displaying signs and symptoms of increased discomfort especially with touch and care. Introduced the role of a low dose morphine concentrate as a tool in the tool box to optimize the patient's comfort and utilize if there are signs and symptoms of pain and what that would look like from an nonverbal perspective to both the patient spouse and caregiver. Both recognize and verbalized understanding and will proceed with low-dose opioid therapy. Given the pain it patient's extensive bruising to her left upper extremity T that is slowly resolving. Advised to hold the patient's aspirin therapy for 2 weeks and may apply cool compress as needed for comfort. Impression and Recommendations - Palliative Care Impression: This is an 81-year-old female with a history of Alzheimer's dementia with pre vious behavioral disturbances that is presently controlled, fast 7C, failure to thrive, debility, ecchymosis to left upper extremity now with reports of pain. The patient continues to demonstrate progressive functional and cognitive decline. Introduced the role of hospice services however, the patient spouse wishes to contemplate before moving forward with making a decision. Palliative care will continue provide support, explore goals of care, care coordination, symptom management and anticipatory guidance. Recommendations/Counseling Done: 1. Pain. Unclear if this is arthritic versus muscular atrophy versus underlying dementia. Introduced MSIR 2.5 mg (0.125 mL) to be administered every 6 hours as needed for pain or shortness of breath. Discussed purpose, dose and side effects with the patient's spouse and primary caregiver including constipation and management with MiraLAX and senna and titration of these medications to have a goal of a daily, soft bowel movement with understanding verbalized. [facility] per spouse's request. 2. Protein calorie malnutrition. Progression of dementia is likely underlying cause. Has had steady reduction of left MAC. Patient has diminishment in overall oral intake both with food as well as liquid. Continue to encourage oral hydration. Continue to expect a gradual decline. Patient spouse has been clear that he does not desire to have an artificial nutrition by tube for the patient. Continue to monitor. Given the patient's decline would be appropriate for transfer to hospice. 3. Ecchymosis LUE. Resolving without tenderness. Likely due to injury from bedrail that has subsequently now been padded.Hold ASA therapy x 2 weeks. May apply cool compress TID for no more than 20 minutes for comfort and not directly to skin. 4. Alzheimer's dementia. Followed by neurologist. No longer on Zyprexa, Aricept, sertraline or Depakote. Patient does have quetiapine 25 mg to be utilized once daily as needed for any acute anxiety or agitation. Patient has not been displaying any signs or symptoms of behavioral disturbances per spouse and caregiver report. Chronic. Progressive. Fall precautions. On no disease modifying agents. Aspiration precautions. Given the patient's advanced age and chronic comorbidities a gradual Luther is expected. 5. Advanced care planning. Patient has POLST in place as DN AR with selective interventions. Provided supportive and empathetic listening to the patient's spouse/DPMARIA GUADALUPE, Fuad in regards to progression of dementia and normalizing feelings of lack of understanding as the patient is unable to express her discomfort or needs. Gently introduced the role of hospice services however, given past experience with home health services the patient spouse has trepidation moving forward with any additional services at this time and wishes to contemplate. Discussed with the patient spouse regarding prognosis that wou ld not expect the patient to have a life expectancy past 6 months at the present time with understanding verbalized. Empathetic and supportive listening provided. Total time spent 40 minutes with greater than 50% of this spent in counseling and coordination of care with spouse and caregiver, Eleni; supportive listening and normalization of feelings; review of hospice philosophy and support; review of pain and symptom management and anticipatory guidance. Disclaimer: The chart note was formulated using voice recognition technology and unfortunately sound alike errors may occur.
== END 2021-05-30 13:01 | disposition home or self-care (01) ==
LOC: PC 13:00
PROVIDERS: ATTEND Nurse Practitioner Family
DX: Z51.5 Encounter for palliative care (principal); G30.9 Alzheimer's disease, unspecified; F02.81 Dementia in other diseases classified elsewhere, unspecified severity, with behavioral disturbance; R52 Pain, unspecified; E46 Unspecified protein-calorie malnutrition; R62.7 Adult failure to thrive; R32 Unspecified urinary incontinence; M81.0 Age-related osteoporosis without current pathological fracture; H91.90 Unspecified hearing loss, unspecified ear; H54.7 Unspecified visual loss; R58 Hemorrhage, not elsewhere classified
CPT/HCPCS: 99349